=== PATIENT | male | born 1995 | race Two or more races ===

== ENCOUNTER 2020-02-13 22:58 | Emergency (ER) | payer MEDICARE, MEDICAID, SELFPAY ==
--- NOTE | 2020-02-13 23:01 | ED.PSYCH ---
HPI - Psych General Chief Complaint: General Medical Stated Complaint: AMS,HX TBI Time Seen by Provider: 02/13/20 22:59 Source: patient Mode of arrival: ambulatory Limitations: no limitations History of Present Illness HPI Narrative: Patient states he had a severe brain injury and he is not making the best decisions and needs help. Onset (ago): year(s) Duration: constant Associated symptoms: denies other symptoms Related Data Home Medications Medication Instructions Recorded Confirmed No Known Home Meds 02/13/20 02/13/20 Allergies Allergy/AdvReac Type Severity Reaction Status Date / Time No Known Allergies Allergy Verified 02/13/20 23:04 Review of Systems Constitutional: Constitutional: Reports no additional constitutional complaints Eyes: Eyes: Reports no additional eye complaints ENT: Denies dizziness Cardiovascular: Cardiovascular: Reports no additional cardiovascular complaints Respiratory: Respiratory: Reports as per HPI Gastrointestinal: Gastrointestinal: Reports no additional gastrointestinal complaints Musculoskeletal: Musculoskeletal: Reports no additional musculoskeletal complaints Integumentary/Breasts: Skin/Breast: Denies rash Neurologic: Reports system reviewed and no additional complaints, except as documented, Denies dizziness and Denies Sensory deficit (Neuro) Psychiatric: Psychiatric: Denies anxiety [facility] Past Medical History Medical History (Updated 02/13/20 @ 23:13 by Blaine Tiwari RN) TBI (traumatic brain injury) Social History Social History Alcohol intake: never Smoking Status: Never smoker Use of substances other than those prescribed or required for medical reasons: No Advance Directives: No Advance Directives Information Provided: No Physical Exam Vital Signs: Vital Signs: Last Vital Signs Temp 98.4 F 02/13/20 23:15 Pulse 53 02/13/20 23:15 Resp 18 02/13/20 23:15 BP 112/70 02/13/20 23:15 Pulse Ox 97 02/13/20 23:15 Body Mass Index 30.4 Const: General: healthy appearing Nutritional Appearance: average body habitus Orientation/consciousness: oriented to person and patient oriented x3 Limitations: no limitations HENMT: Head: Yes normal to inspection Ears: external ears normal General nose exam: Normal external nose present Mouth: Normal oral and palatal mucosa present and oropharynx normal Throat: Yes posterior oropharynx normal Eyes: General: appearance normal, both eyes and all related structures Neck: Other: supple Neck: Yes normal visual inspection Chest: Chest palpation & inspection: normal inspection of the chest Resp: Auscultation: clear to auscultation bilaterally Cardio: Jugular venous distension: no JVD Rate: regular rate Rhythm: regular rhythm Heart sounds: S1 normal heart sound present and S2 normal heart sound present GI: Inspection: Yes normal to inspection Palpation (GI): Soft to palpation, nontender and No hepatosplenomegaly present Auscultation: normal bowel sounds : General: Yes no CVA tenderness Back/Spine/Pelvis: Back: no CVA tenderness Skin: General skin exam: no rashes or lesions noted Neuro: General: oriented to person and patient oriented x3 Cranial nerves: Yes CN's II-XII intact bilaterally Motor exam (neuro): 5/5 motor strength present throughout Sensory Exam: No Sensory deficit (Neuro) Extrem: General: Yes normal to inspection Psych: Appearance: grossly normal Course Course Course Narrative: Patient states he does not want his sister picking him up. He will call an Uber and get a ride to his friends MDM - Psych MDM Narrative Medical decision making narrative: Patient can leave the ED he is not a denger to self or others Restraints Face to Face Assessment: Face to Face Assessment: Current Situation: After assessment of the patient, a review of the pertinent medical record and a discussion with nursing staff, I feel the patient requires a restrain intervention. Reaction To: [] Medical Condition: [] Behavioral State: [] Continued Need: [] Lab Data Result diagrams: 02/13/20 23:21 02/13/20 23:21 Labs: Lab Results 02/13/20 02/13/20 02/13/20 Range/Units 23:21 23:21 23:51 WBC 9.1 (4.8-10.8) X10*3/uL RBC 5.42 (4.60-5.80) X10*6/uL Hgb 16.0 (14.0-18.0) g/dl Hct 47.0 (42-52) % MCV 86.7 (80-98) fL MCH 29.5 (27.0-33.0) pg MCHC 34.0 (31.0-36.0) g/dl RDW 12.6 (11.0-16.0) % Plt Count 206 (160-400) X10*3/uL MPV 11.2 (9.4-12.4) fL Immature Gran % (Auto) 0.2 (0.0-0.4) % Neut % (Auto) 75.1 H (45-73) % Lymph % (Auto) 19.7 L (20-40) % [place] % (Auto) 4.2 (2-11) % Eos % (Auto) 0.6 (0-4) % Baso % (Auto) 0.2 (0-2) % Lymph # (Auto) 1.8 (1.2-4.9) X10*3/uL [place] # (Auto) 0.4 (0.1-1.2) X10*3/uL Eos # (Auto) 0.1 (0.0-0.4) X10*3/uL Baso # (Auto) 0.0 (0.0-0.2) X10*3/uL Abs Immat Gran (auto) 0.02 (0.00-0.03) X10*3/uL Absolute Neuts (auto) 6.8 (2.0-8.3) X10*3/uL Absolute Nucleated RBC 0.000 (0.0-0.012) X10*3/uL Nucleated RBC % (auto) 0.0 (0.0-0.2) /100WBC Sodium 139 (135-145) mmol/L Potassium 3.9 (3.3-5.1) mmol/l Chloride 106 (96-108) mmol/L Carbon Dioxide 24 (22-29) mmol/L Anion Gap 13 (12-20) BUN 8 L (9-16) mg/dL Creatinine 0.83 (0.5-1.4) mg/dL Estim Creat Clear Calc 156.9 Estimated GFR > 60 Random Glucose 80 (60-115) mg/dL Calcium 8.6 (8.4-10.2) mg/dL Urine Color YELLOW Urine Appearance CLEAR Urine pH 7.0 (5.0-8.0) Ur Specific [place] 1.020 (1.005-1.025) Urine Protein NEG (NEG-TRACE) MG/DL Urine Glucose (UA) NEG (NEG) MG/DL Urine Ketones NEG (NEG) MG/DL Urine Blood NEG (NEG) Urine Nitrite NEG (NEG) Ur Leukocyte Esterase NEG (NEG) Discharge Plan Discharge Clinical Impression: Homeless Patient Disposition: Home, Self-Care Additional Instructions: Can follow up with outpatient case management Prescriptions: No Action No Known Home Meds RF: 0
[2020-02-13 23:03] VITALS: BP 121/77; BP 136/90; PULSE 54; PULSE 56; RESP 18; TEMP 36.9; O2SAT 100; O2SAT 98; BMI 30.4
[2020-02-13 23:15] VITALS: BP 112/70; PULSE 53; RESP 18; TEMP 36.9; O2SAT 97
[2020-02-13 23:27] LABS: MANUAL DIFF FLAG NO
[2020-02-13 23:28] LABS: Basophils Percent Auto 0.2 % (0-2); Eosinophils Absolute Auto 0.1 X10*3/uL (0.0-0.4); Eosinophils Percent Auto 0.6 % (0-4); Imm Gran Abs Auto 0.02 X10*3/uL (0.00-0.03); Imm Gran Pct Auto 0.2 % (0.0-0.4); Lymphocytes Absolute Auto 1.8 X10*3/uL (1.2-4.9); Lymphocytes Percent Auto 19.7 % (20-40); Mean Corpuscular Hemoglobin 29.5 pg (27.0-33.0); Mean Corpuscular Volume 86.7 fL (80-98); Mean Platelet Volume 11.2 fL (9.4-12.4); Monocytes Absolute Auto 0.4 X10*3/uL (0.1-1.2); Monocytes Percent Auto 4.2 % (2-11); Neutrophils Absolute Auto 6.8 X10*3/uL (2.0-8.3); Neutrophils Percent Auto 75.1 % (45-73); Platelet Count 206 X10*3/uL (160-400); Red Blood Count 5.42 X10*6/uL (4.60-5.80); Red Cell Distribution Width 12.6 % (11.0-16.0); White Blood Count 9.1 X10*3/uL (4.8-10.8)
[2020-02-13 23:56] LABS: Anion Gap 13 (12-20); Blood Urea Nitrogen 8 mg/dL (9-16); Calcium 8.6 mg/dL (8.4-10.2); Carbon Dioxide 24 mmol/L (22-29); Chloride 106 mmol/L (96-108); Creatinine Clr Calc Pharmacy 156.9; Estimated Glomerular Filt Rate > 60; Glucose Random 80 mg/dL (60-115); Potassium 3.9 mmol/l (3.3-5.1); Sodium 139 mmol/L (135-145)
[2020-02-14] LABS: Glucose Urine UA NEG (NEG); Leukocyte Esterase Urine NEG (NEG); Nitrite Urine NEG (NEG); Urine Blood NEG (NEG); Urine Ketones NEG (NEG); Urine Protein NEG (NEG-TRACE)
[2020-02-14 00:05] LABS: Appearance Urine CLEAR; Color Urine YELLOW
--- NOTE | 2020-02-14 00:11 | MHC.CARE ---
CARE Team speaks with Dr. Guillermo, after receiving a consult, which indicates that pt has no safe place to go, and has a TBI. Per discussion with Dr. Guillermo, pt not currently in need of psychiatric treatment and instead is in need of a halfway program which can address his TBI. Plan will be for patient to board overnight in the ED and Dr. Guillermo will place a case management consult.
== END 2020-02-14 01:46 | disposition home or self-care (01) ==
LOC: HO.ED 02-14 01:27
PROVIDERS: Emergency Provider Emergency Medicine
DX: R41.82 Altered mental status, unspecified (principal); Z87.820 Personal history of traumatic brain injury
CPT/HCPCS: 36415; 80048; 81003; 85025; 99284

== ENCOUNTER 2025-01-29 16:07 | Emergency (ER) | payer MEDICARE, MEDICAID, SELFPAY ==
--- OUTSIDE RECORDS SUMMARY | 2025-01-23 17:44 | XMS_ITS | Encounter Summary ---
Author Organization [facility] Address [address] [place] [address] Care Team Providers Care Supervisor Rolling Room Name Role Phone Mg Louis MD Primary Care Provider [phone] Reason for Visit * Reason Comments Weakness - Generalized Pt feeling off fo r one hour; Mult visits this week Encounter Details Date Type Department Care Team (Late st Contact Info) Description 01/23/2025 5:44 PM EDT - 01/23/2025 9:32 PM EDT Emergency [facility] Emergency [address] [place] [address] Angelita Peck MD [address] [place] [address] Acute right ankle pain (Primary Dx) Discharge Disposition: Home or Self Care Social History Tobacco Use Types Packs/Day Years Used Date Smoking Tobacco: Never Smokeless Tobacco: Never Alcohol Use Standard Drinks/Week Comments No 0 (1 standard drink = 0.6 oz pur e alcohol) Sex and Gender Information Value Date Recorded Sex Assigned at Not on file Legal Sex Male 11:01 AM EST Gender Identity Not on file Sexual Orientation Not on file documented as of this encounter Last Filed Vital Signs Vital Sign Reading Time Taken Comments Blood Pressure 127/85 01/23/2025 6:05 PM EDT Pulse 70 01/23/2025 6:05 PM EDT Temperature 36.7 C (98.1 F) 01/23/2025 6:05 PM EDT Respiratory Rate 18 01/23/2025 6:05 PM EDT Oxygen Saturation 99% 01/23/2025 6:05 PM EDT Inhaled Oxygen Concentration - - Weight 117 kg (259 lb) 01/23/2025 6:05 PM EDT Height 177.8 cm (5' 10 ) 01/23/2025 6:05 PM EDT Body Mass Index 37.16 01/23/2025 6:05 PM EDT documented in this encounter Functional Status * Calculated C-SSRS Risk Score (Lifetime/Recent) Answer Date of Assessment Author No Risk Indicated 01/23/2025 6:04 PM EDT Santiago Moody RN * Superior Suicide Severity Rating Scale (Screener/Recent Self-Report) Question Answer Date of Assessment Author 1. Wish to be (Past 1 Month) No 025 6:04 PM EDT Ibeth Moody RN 2. Non-Specific Active Suici sidney Thoughts (Past 1 Month) No 01/23/2025 6:04 PM EDT Margarita Moody RN 6. Suicidal Behavior (Lifetime) No 5 6:04 PM EDT Ibeth Moody RN documented as of this encounter Medications at Time of Discharge diclofenac (VOLTAREN) 1 % topical gel Apply 4 g topically 4 (four) times a day for 7 days. 100 g 01/22/2025 divalproex (DEPAKOTE ER) 500 mg 24 hr tablet Take 2 tablets (1,000 mg total) by mouth 2 (two) times a day. 03/03/2024 OLANZapine (ZyPREXA) 5 mg tablet Take 0.5 tablets (2.5 mg total) by mouth at bedtime. ibuprofen (ADVIL,MOTRIN) 600 mg tablet Take 1 tablet (600 mg total) by mouth 3 (three) times a day for 5 days. 15 each 01/22/2025 5 documented as of this encounter Discharge Disposition Disposition Code Departure Means Destination Home or Self Care documented in this encounter Progress Notes * Angelita Peck MD - 01/23/2025 6:04 PM EDT Asked to evaluate patient for stroke given feeling off and history of TBI. Patient denies all neuro symptoms, is here for fall and pain in right ankle, head feels off , no dizziness, headache. Hisneurological exam is normal. No stroke alert activated. * Shira Godinez RN - 01/23/2025 5:57 PM EDT Pt called EMS for feeling off for one hours. Hx of TBI. Negative stroke scale for EMS. Pt denies dizziness, numbness, si/hi, nausea/vomiting. * Angelita Peck MD - 01/23/2025 5:44 PM EDT Patient no answer x 3. I had seen him in triage for neuro exam, he was complaining of non-specific not feeling well , ongoing right ankle pain, no specific symptoms, appeared chronically but not acutely ill, had normal vitals, breathing normally. Patient left prior to additional evaluation. Angelita Peck MD 01/23/254 documented in this encounter Plan of Treatment Not on file documented as of this encounter Visit Diagnoses Diagnosis Acute right ankle pain- Primary documented in this encounter Care Teams Supervisor Rolling Room Relationship Specialty Start Date End Date Mg Louis MD [address] [place] [address] PCP - General Internal Medicine 01/21/25 documented as of this encounter
--- OUTSIDE RECORDS SUMMARY | 2025-01-24 08:43 | XMS_ITS | Continuity of Care Document ---
Author Organization [facility] ter Address [address] [place] [address]- Care Team Providers Care Linux System Administrator Name Role Phone Missy ESTRADA, Mg De Souza Primary Care Physician [place] [facility] [place]/23/[place] - 01/24/[address] [address]- Discharge Disposition: A-D/C Walkout Attending Physician: Trevor Salinas MD Admitting Physician: Trevor Salinas MD Referring Physician: Not on Staff, Referring MD Encounter Type: Disch ES Allergies, Adverse Reactions, Alerts No Known Allergies Immunizations Given and Recorded Vaccine Date Status Refusal Reason influenza virus vaccine, inactivated 04/16/24 Give n influenza virus vaccine, inactivated 03/11/22 Santiago rded influenza virus vaccine, inactivated 06/18/21 Santiago rded influenza virus vaccine, inactivated 12/26/19 Santiago rded influenza virus vaccine, inactivated 05/07/19 Santiago rded influenza virus vaccine, inactivated 03/15/18 Santiago rded influenza virus vaccine, inactivated 01/21/16 Santiago rded SARS-CoV-2(COVID-19)mRNA-LNP vac([id number]) 02/12/24 Given SARS-CoV-2 (COVID-19) mRNA-1273 vaccine 06/10/20 R ecorded SARS-CoV-2 (COVID-19) mRNA-1273 vaccine 05/13/20 R ecorded hepatitis B adult vaccine 07/12/18 Recorded hepatitis B adult vaccine 03/15/18 Recorded Medications divalproex sodium 500 mg oral enteric coated tablet = 500 mg, By Mouth, 2 times a day, # 28 tablet, 1 Refills, Maintenance, 08/14/22 11:03:00 AM EDT, Tablet, [facility], Partial fill upon patient request if the prescription is for a schedule II opioid drug., 178, cm, 08/07/22 15:22:00 EDT, Height, 117, kg, 08/07/22 15:22:00 EDT, Dry Weight Start Date: 08/14/22 Stop Date: 09/11/22 Status: Ordered Medication Dispense Status: Completed Quantity: 28.0 Unit: tablet Total Allowed Fills: 2 Fills Dispensed: 0 olanzapine 10 mg oral tablet 10 mg, 1, tablet, By Mouth, Daily at bedtime, # 30 tablet, Refills 1, Tot. Refills 1, Maintenance, 03/09/20 11:59:00 AM EST, Route to Pharmacy Electronically, [facility]/pharmacy #[id number], Partial fill upon patient request if the prescription is for a schedule II opioid drug., 178, cm, 03/09/20 8:41:00 EST, Height, 99.5, kg, 02/28/20 19:45:00 EST, Dry Weight Start Date: 03/09/20 Status: Ordered Medication Dispense Status: Completed Quantity: 30.0 Unit: tablet Total Allowed Fills: 2 Fills Dispensed: 0 traZODone 50 mg oral tablet 50 mg, 1, tablet, By Mouth, Daily at bedtime, # 90 tablet, Refills 1, Tot. Refills 1, Maintenance, 06/24/24 8:12:00 AM EDT, Route to Pharmacy Electronically, [facility]/pharmacy #[id number], Partial fill upon patient request if the prescription is for a schedule II opioid drug., 178, cm, 05/27/24 9:22:00 EST, Height, 124, kg, 04/30/24 17:55:00 EST, Dry Weight Start Date: 06/24/24 Status: Ordered Medication Dispense Status: Completed Quantity: 90.0 Unit: tablet Total Allowed Fills: 2 Fills Dispensed: 0 Indications: Insomnia, unspecified; Mental Status Mental Status Assessment Assessment Assessment Component Result Effecti ve Date [place] coma score total 15 Problem List Condition Confirmation Course Effective Dates Status Health St atus Informant Compulsive behaviors Confirmed Active COVID-19 1 Confirmed 06/29/21 Active 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 Confirmed Active 1Problem added by Discern Expert Vital Signs Most recent to oldest [Reference Range]: 1 2 Height 178 cm (01/23/25 9:47 PM) 178 cm (01/23/25 9:07 PM) Weight 117.7 kg (01/23/25 9:47 PM) 117.7 kg (01/23/25 9:07 PM) Oxygen Saturation [94-100 %] 100 % (01/23/25 9:07 PM) Pulse Rate [55-90 bpm] 85 bpm (01/23/25 9:07 PM) Body Mass Index [18.5-24.99 kg/m2] 37.15 kg/m2 *H* (01/23/25 9:07 PM) Blood Pressure [90-138/55-84 mm Hg] 140/ 84mm Hg *H* (01/23/25 9:07 PM) Respiratory Rate [16-30 br/min] 17 br/mi n (01/23/25 9:07 PM) Temperature [96.8-100.4 DegF] 97.6 DegF (01/23/25 9:07 PM) Mode of Delivery (Oxygen) Room air (01/23/25 9:07 PM) Blood pressure sites Arm, left (01/23/25 9:07 PM) Temperature Route Oral (01/23/25 9:07 PM) Dry Weight 117.7 kg (01/23/25 9:47 PM) 117.7 kg (01/23/25 9:07 PM) Weight Obtained Via Patient/family state d (01/23/25 9:07 PM) Dry Weight Obtained Via Patient/family s tated (01/23/25 9:07 PM) Social History Social History Type Response Smoking Status Never (less than 100 in lifetime); Interested in cessation: No; Patient wants NRT during admission No entered on: 09/12/22 Sex Male Sex Representation Male (finding) Status N/A Patient Care team information Care Team Personnel Name: Mg Louis MD Position: [facility] Physician - Primary Care Member Role: PCP Address: [address] [place], [place] [address] Telecom: Name: Sara Kellogg [place] Position: [facility] Federal Aid Coordinator Member Role: Slitter Creaser Slotter Helper Care Team Related Persons Name: TOM SHER Name: ANGELA HOFFMAN Name: ZORAIDA HOFFMAN Name: CHRISTOS DAMON Name: CHRISTOS SANTOS Insurance Providers Guarantor name: SMIHT Health Plan Information #: 1 Payer: MEDICARE B Payer Identifier: NA Member Number: [id number] Group Number: Subscriber Identifier: [id number] Relationship to Subscriber: self Coverage Type: NA Coverage Verification Date: NA Telecom: NA Address: Health Plan Information #: 2 [facility] Payer Identifier: NA Member Number: [id number] Group Number: Subscriber Identifier: [id number] Relationship to Subscriber: self Coverage Type: MEDICAID Coverage Verification Date: NA Telecom: NA Address:
--- OUTSIDE RECORDS SUMMARY | 2025-01-24 10:27 | XMS_ITS | Continuity of Care Document ---
Author Organization [facility] ter Address [address] [place] [address]- Care Team Providers Care Dental Laboratory Manager Name Role Phone Missy ESTRADA, Mg De Souza Primary Care Physician Encounter [facility] Date(s): 01/24/25 - 01/24/[address] [address]- Discharge Disposition: A-D/C Home Attending Physician: Lisette Berman MD Admitting Physician: Lisette Berman MD Referring Physician: Not on Staff, Referring [...] virus vaccine, inactivated 01/21/16 Santiago rded SARS-CoV-2(COVID-19)mRNA-LNP vac([id number]) 02/12/24 Given SARS-CoV-2 (COVID-19) mRNA-1273 vaccine 06/10/20 R ecorded SARS-CoV-2 (COVID-19) mRNA-1273 vaccine 05/13/20 R ecorded hepatitis B adult vaccine 07/12/18 Recorded hepatitis B adult vaccine 03/15/18 Recorded Medications divalproex sodium 500 mg oral enteric coated tablet = 500 mg, By Mouth, 2 times a day, # 28 tablet, 1 Refills, Maintenance, 08/14/22 11:03:00 AM EDT, Tablet, [facility], Partial fill upon patient request [...] 11:59:00 AM EST, Route to Pharmacy Electronically, [facility]/pharmacy #[id number], Partial fill upon patient request [...] 8:12:00 AM EDT, Route to Pharmacy Electronically, [facility]/pharmacy #[id number], Partial fill upon patient request [...] Assessment Assessment Component Result Effecti ve Date [place] coma score total 15 Mental Status Assessment Assessment Assessment Component Result Effecti ve Date [place] coma score total 15 Problem List Condition Confirmation Course Effective Dates Status Health St atus Informant Compulsive behaviors Confirmed Active COVID-19 1 Confirmed 06/29/21 Active 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 Confirmed Active 1Problem added by Discern Expert Vital Signs Most recent to oldest [Reference Range]: 1 Oxygen Saturation [94-100 %] 100 % (01/24/25 8:34 AM) Pulse Rate [55-90 bpm] 88 bpm (01/24/25 8:34 AM) Blood Pressure [90-138/55-84 mm Hg] 140/ 86mm Hg *H* (01/24/25 8:34 AM) Respiratory Rate [16-30 br/min] 16 br/mi n (01/24/25 8:34 AM) Temperature [96.8-100.4 DegF] 97.9 DegF (01/24/25 8:34 AM) Mode of Delivery (Oxygen) Room air (01/24/25 8:34 AM) Temperature Route Oral (01/24/25 8:34 AM) Social History Social History Type Response Smoking Status Never (less than 100 in lifetime); Interested in cessation: No; Patient wants NRT during admission No entered on: 09/12/22 Sex Male Sex Representation Male (finding) Status N/A Note * Cullen ESTRADA, Lisette J: PERFORM, SIGN, VERIFY Event Display: Patient Education Handout Authored Date: [id number] Patient Care team information Care Team Personnel Name: Mg Louis MD Position: [facility] Physician - Primary Care Member Role: PCP Address: [address] [place] [address]- Telecom: Name: Sara Kellogg [place] Position: [facility] KALIN Laryngologist Member Role: Social Work Associate Care Team Related Persons Name: TOM SHER Name: ANGELA HOFFMAN Name: ZORAIDA HOFFMAN Name: CHRISTOS DAMON Name: CHRISTOS SANTOS Insurance Providers Guarantor name: SMITH Health Plan Information #: 1 Payer: MEDICARE B Payer Identifier: SMITH Member Number: [id number] Group Number: SMITH Subscriber Identifier: [id number] Relationship to Subscriber: self Coverage Type: NA Coverage Verification Date: NA Telecom: NA Address: NA Health Plan Information #: 2 Payer: [facility] CUSTOMER SERVICE Payer Identifier: SMITH Member Number: [id number] Group Number: SMITH Subscriber Identifier: [id number] Relationship to Subscriber: self Coverage Type: MEDICAID Coverage Verification Date: NA Telecom: NA Address: NA
--- OUTSIDE RECORDS SUMMARY | 2025-01-24 23:59 | XMS_ITS | Continuity of Care Document ---
Author Organization [facility] Address [address] [place] [address]- Care Team Providers Care Math Professor Name Role Phone Mg Louis MD Primary Care Physician Encounter [facility] Date(s): 12/25/24 - 01/24/[address] [address]- Encounter Type: Triage Allergies, Adverse Reactions, Alerts No Known Allergies [...] virus vaccine, inactivated 01/21/16 Santiago rded SARS-CoV-2(COVID-19)mRNA-LNP vac([id number]) 02/12/24 Given SARS-CoV-2 (COVID-19) mRNA-1273 vaccine 06/10/20 R ecorded SARS-CoV-2 (COVID-19) mRNA-1273 vaccine 05/13/20 R ecorded hepatitis B adult vaccine 07/12/18 Recorded hepatitis B adult vaccine 03/15/18 Recorded Medications divalproex sodium 500 mg oral enteric coated tablet = 500 mg, By Mouth, 2 times a day, # 28 tablet, 1 Refills, Maintenance, 08/14/22 11:03:00 AM EDT, Tablet, [facility], Partial fill upon patient request [...] 11:59:00 AM EST, Route to Pharmacy Electronically, [facility]/pharmacy #[id number], Partial fill upon patient request if [...] 8:12:00 AM EDT, Route to Pharmacy Electronically, [facility]/pharmacy #[id number], Partial fill upon patient request if the prescription is for a schedule II opioid drug., 178, cm, 05/27/24 9:22:00 EST, Height, 124, kg, 04/30/24 17:55:00 EST, Dry Weight Start Date: 06/24/24 Status: Ordered Medication Dispense Status: Completed Quantity: 90.0 Unit: tablet Total Allowed Fills: 2 Fills Dispensed: 0 Indications: Insomnia, unspecified; Problem List Condition Confirmation Course Effective Dates Status Health St atus Informant Compulsive behaviors Confirmed Active COVID-19 1 Confirmed 06/29/21 Active 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 Confirmed Active 1Problem added by Discern Expert Social History Social History Type Response Smoking Status Never (less than 100 in lifetime); Interested in cessation: No; Patient wants NRT during admission No entered on: 09/12/22 Sex Male Sex Representation Male (finding) Patient Care team information Care Team Personnel Name: Missy ESTRADA, Mg De Souza Position: [facility] Physician - Primary Care Member Role: PCP Address: [address] [place] [id number] Telecom: Name: Sara Kellogg [place] Position: [facility] KALIN Riveter Portable Machine Member Role: Kettle Operator Head Care Team Related Persons Name: TOM SHER Name: ANGELA HOFFMAN Name: ZORAIDA HOFFMAN Name: CHRISTOS DAMON Name: CHRISTOS SANTOS Insurance Providers Guarantor name: SMITH Health Plan Information #: 1 Payer: MEDICARE B Payer Identifier: SMITH Member Number: [id number] Group Number: Subscriber Identifier: SMITH Relationship to Subscriber: self Coverage Type: NA Coverage Verification Date: Telecom: Address: Health Plan Information #: 2 Payer: [employer] Payer Identifier: SMITH Member Number: [id number] Group Number: Subscriber Identifier: Relationship to Subscriber: self Coverage Type: MEDICAID Coverage Verification Date: Telecom: Address:
--- OUTSIDE RECORDS SUMMARY | 2025-01-25 18:42 | XMS_ITS | Continuity of Care Document ---
Author Organization [facility] ter Address [address] [place] [address]- Care Team Providers Care Bleach Packer Name Role Phone Mg Louis MD Primary Care Physician Encounter [facility] Date(s): 01/25/25 - 01/25/[address] [address]- Encounter Diagnosis Wellness examination(Final) - 01/25/25 Discharge Disposition: A-D/C Home Attending Physician: Sylwia Dowell DO Admitting Physician: Sylwia Dowell DO Referring Physician: Not on Staff, Referring MD [...] virus vaccine, inactivated 01/21/16 Santiago rded SARS-CoV-2(COVID-19)mRNA-LNP vac([id number]) 02/12/24 Given SARS-CoV-2 (COVID-19) mRNA-1273 vaccine 06/10/20 R ecorded SARS-CoV-2 (COVID-19) mRNA-1273 vaccine 05/13/20 R ecorded hepatitis B adult vaccine 07/12/18 Recorded hepatitis B adult vaccine 03/15/18 Recorded Medications divalproex sodium 500 mg oral enteric coated tablet = 500 mg, By Mouth, 2 times a day, # 28 tablet, 1 Refills, Maintenance, 08/14/22 11:03:00 AM EDT, Tablet, [facility], Partial fill upon patient request if [...] 11:59:00 AM EST, Route to Pharmacy Electronically, [facility]/pharmacy #[id number], Partial fill upon patient request if [...] 8:12:00 AM EDT, Route to Pharmacy Electronically, [facility]/pharmacy #[id number], Partial fill upon patient request if [...] ve Date Nikko coma score total 15 Mental Status Assessment Assessment Assessment Component Result Effecti ve Date Nikko coma score total 15 Dry body weight Measured 117 Body height 178 01/25/25 Scale weight (physic al object) Patient/family stated 01/25/25 Body weight 117 01/25/25 Problem List Condition Confirmation Course Effective Dates Status Health St atus Informant Compulsive behaviors Confirmed Active COVID-19 1 Confirmed 06/29/21 Active 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 Confirmed Active 1Problem added by Discern Expert Vital Signs Most recent to oldest [Reference Range]: 1 2 Height 178 cm (01/25/25 4:52 PM) 178 cm (01/25/25 4:27 PM) Weight 117 kg (01/25/25 4:52 PM) 117 kg (01/25/25 4:27 PM) Oxygen Saturation [94-100 %] 99 % (01/25/25 4:27 PM) Pulse Rate [55-90 bpm] 80 bpm (01/25/25 4:27 PM) Body Mass Index [18.5-24.99 kg/m2] 36.93 kg/m2 *H* (01/25/25 4:27 PM) Blood Pressure [90-138/55-84 mm Hg] 150/ 95mm Hg *H* (01/25/25:27 PM) Respiratory Rate [16-30 br/min] 18 br/mi n (01/25/25 4:27 PM) Temperature [96.8-100.4 DegF] 98.4 DegF (01/25/25 4:27 PM) Mode of Delivery (Oxygen) Room air (01/25/25 4:27 PM) Blood pressure sites Arm, right (01/25/25 4:27 PM) Temperature Route Oral (01/25/25 4:27 PM) Dry Weight 117 kg (01/25/25 4:52 PM) 117 kg (01/25/25 4:27 PM) Weight Obtained Via Patient/family state d (01/25/25 4:52 PM) Patient/family stated (01/25/25 4:27 PM) Dry Weight Obtained Via Patient/family s tated (01/25/25 4:27 PM) Social History Social History Type Response Smoking Status Never (less than 100 in lifetime); Interested in cessation: No; Patient wants NRT during admission No entered on: 09/12/22 Sex Male Sex Representation Male (finding) Status N/A Note * Sylwia Dowell DO: PERFORM Event Display: Patient Education Leaflets Authored Date: [id number] Depression ?? [id number] Depression Depression is a common mental health problem. It's not just a state of being unhappy or sad. It's aserious illness. It is a type of mood disorder. It affects the way a person feels and thinks. And it affects how they handle daily activities. These include working, sleeping, and eating. The cause seems to be linked to a change in chemicals that send signals in the brain. These things increase a person???s risk for depression: ??? A family history of depression, alcoholism, or suicide ??? Chronic mental or physical illness ??? Chronic pain ??? Migraine headaches ??? High emotional stress Depression may be easier to see in others. You may have a hard time seeing it in yourself. It can show in many physical and emotional ways. These include: ??? Loss of appetite. ??? Overeating. ??? Not being able to sleep. ??? Sleeping too much. ??? A lotof tiredness not linked to physical activity. ??? Restlessness or irritability. ??? Slowness of movement or speech. ??? Feeling sad or withdrawn. ??? Loss of interest in things you once enjoyed. ??? T rouble??concentrating, remembering,??or making decisions. ??? Thoughts of harming or killing yourself, or thoughts that life is not worth living. ??? Low self-esteem. The treatment for depression may include medicine or psychotherapy, or both. The goal of treatment is to reduce or get rid of your symptoms and restore the quality of your life. Antidepressant medicines can ease symptoms. They can also make it easier for you to do daily tasks.Some people start feeling better within 1 to 2 weeks after using these medicines. But it can take 6to 12 weeks to get their full effect. Psychotherapy, or talk therapy, can offer emotional support. It can also help you understand and manage things that may be causing the depression. It can occur between you and a counselor. Or it can happen in a group setting. Some people prefer virtual counseling, or telehealth, to in-person meetings. In addition to medicine and psychotherapy, physical activity and exercise can ease depression. Talkwith your health care provider about where to start. Home care ??? Ongoing care and support help people manage this illness. Find a health care providerand a counselor who meet your needs. Get help when you feel like you may be getting ill. ??? Be kind to yourself. Make it a point to do things that you enjoy. This may be gardening, walking in nature, or going to a movie. Reward yourself for small successes. ??? Take care of your body. Eat a balanced diet. Eat foods low in saturated fat. Eat lots of fruits and vegetables. Exercise at least 3 times a week for 30 minutes. Even mild to moderate exercise like brisk walking can help you feel better.??? Take medicine as prescribed. Don't stop your medicine or change the dose unless you talk with your health care provider. ??? Once you start taking medicine, expect your symptoms to get better slowly. Depression will lift over time. It does not get better right away. Ask your health care provider how long it will take for your medicine to start working. ??? Don't share your medicine. Don???t use someone else's medicine. ??? Tell your health care providers about all the medicines you take. This includes prescription and [id number] medicines. It also includes vitamins and herbal supplements. Some supplements can interact with medicines. They can cause dangerous side effects. Talk to your pharmacist if you have questions about your medicines. ??? Don't make major changes until you feel better. This includes things like quitting your job, moving, and starting or ending a relationship. ??? Don't drink alcohol. It can make depression worse. ??? Talk with your family and??trusted friends??about your feelings and thoughts.??Ask them to help you notice behavior changes early. You can then get help. And your medicine can be changed, if needed. ??? Talk with your health care provider if you are not getting better. They may change your medicine or have you try another treatment. ?? Follow-up care Follow up with your health care provider as advised. ?? Crisis care Call 988 if you have thoughts of harming yourself or others. When you call or text 988, you will beconnected to trained crisis counselors. An online chat choice is also available. Anchor™ is free and available 24/10. 988 counselors will work with 911 to help you get the care you need. Call 911 if you: ??? Have trouble breathing. ??? Are??very confused. ??? Feel very drowsy or have??trouble waking up. ??? Faint. ??? Have new chest pain that becomes more severe, lasts longer, or spreads into your shoulder, arm, neck, jaw, or back. ?? When to get medical care Contact your health care provider right away if: ??? Your symptoms get worse. ??? You have extreme depression, fear, anxiety, or anger toward yourself or others. ??? You feel out of control. ??? You feel that you may try to harm yourself or others. ??? You hear voices other people don't hear. ??? You see things other people don't see. ??? You don't sleep or eat for 3 days in a row. ??? Your friends or family express concern over your behavior and ask you to get help. ?? Last Reviewed Date: 2024 00:00:00 ?? [id number] [employer]. All rights reserved. This information is not intended as a substitute for professional medical care. Always follow your healthcare professional's instructions. ?? Patient Care team information Care Team Personnel Name: Mg Louis MD Position: [facility] Physician - Primary Care Member Role: PCP Address: [address] [place] [address]- Telecom: Name: Sara Kellogg MA Position: [facility] KALIN Special Skills Officer Member Role: Resource Room Special Education Teacher Care Team Related Persons Name: TOM SHER Name: ANGELA HOFFMAN Name: ZORAIDA HOFFMAN Name: CHRISTOS DAMON Name: CHRISTOS SANTOS Insurance Providers Guarantor name: SMITH Health Plan Information #: 1 Payer: MEDICARE B Payer Identifier: SMITH Member Number: [id number] Group Number: SMITH Subscriber Identifier: [id number] Relationship to Subscriber: self Coverage Type: NA Coverage Verification Date: NA Telecom: NA Address: Health Plan Information #: 2 Payer: [facility] C[employer]ER SERVICE Payer Identifier: SMITH Member Number: [id number] Group Number: SMITH Subscriber Identifier: [id number] Relationship to Subscriber: self Coverage Type: MEDICAID Coverage Verification Date: NA Telecom: NA Address:
--- OUTSIDE RECORDS SUMMARY | 2025-01-26 23:59 | XMS_ITS | Continuity of Care Document ---
Author Organization [facility] Address [address] [place] [address]- Care Team Providers Care Glazier Artist Name Role Phone Mg Louis MD Primary Care Physician [phone] Encounter [facility] Date(s): 12/27/24 - 01/26/[address] [address]- Encounter Type: Triage Allergies, Adverse Reactions, Alerts [...] virus vaccine, inactivated 01/21/16 Santiago rded SARS-CoV-2(COVID-19)mRNA-LNP vac([id number]) 02/12/24 Given SARS-CoV-2 (COVID-19) mRNA-1273 vaccine 06/10/20 R ecorded SARS-CoV-2 (COVID-19) mRNA-1273 vaccine 05/13/20 R ecorded hepatitis B adult vaccine 07/12/18 Recorded hepatitis B adult vaccine 03/15/18 Recorded Medications divalproex sodium 500 mg oral enteric coated tablet = 500 mg, By Mouth, 2 times a day, # 28 tablet, 1 Refills, Maintenance, 08/14/22 11:03:00 AM EDT, Tablet, [facility] 3, Partial fill upon patient [...] 11:59:00 AM EST, Route to Pharmacy Electronically, [facility]/pharmacy #[id number], Partial fill upon patient request if [...] 8:12:00 AM EDT, Route to Pharmacy Electronically, [facility]/pharmacy #[id number], Partial fill upon patient request if [...] Name: Missy ESTRADA, Mg De Souza Position: [facility] Physician - Primary Care Member Role: PCP Address: [address] [place], [place] [address] Telecom: Name: Sara Kellogg MA Position: [facility] Produce Assistant Member Role: Ict Help Desk Officer Care Team Related Persons Name: TOM SHER Name: ANGELA HOFFMAN Name: ZORAIDA HOFFMAN Name: CHRISTOS DAMON Name: CHRISTOS SANTOS Insurance Providers Guarantor name: SMITH Health Plan Information #: 1 Payer: MEDICARE B Payer Identifier: SMITH Member Number: [id number] Group Number: Subscriber Identifier: SMITH Relationship to Subscriber: self Coverage Type: NA Coverage Verification Date: Telecom: Address: Health Plan Information #: 2 Payer: [facility] CUSTOMER SERVICE Payer Identifier: SMITH Member Number: [id number] Group Number: SMITH Subscriber Identifier: Relationship to Subscriber: self Coverage Type: MEDICAID Coverage Verification Date: Telecom: Address:
--- OUTSIDE RECORDS SUMMARY | 2025-01-28 22:26 | XMS_ITS | Continuity of Care Document ---
Author Organization [facility] ter Address [address] [place] [address]- Care Team Providers Care Demand Planning Manager Name Role Phone Mg Louis MD Primary Care Physician Encounter [facility] [id number] Date(s): 01/28/25 - 01/28/[address] [address]- Discharge Disposition: A-D/C Home Attending Physician: Ralph Hernández MD Admitting Physician: Ralph Hernández MD Referring Physician: Not on Staff, Referring [...] virus vaccine, inactivated 01/21/16 Santiago rded SARS-CoV-2(COVID-19)mRNA-LNP vac([id number]) 02/12/24 Given SARS-CoV-2 (COVID-19) mRNA-1273 vaccine 06/10/20 R ecorded SARS-CoV-2 (COVID-19) mRNA-1273 vaccine 05/13/20 R ecorded hepatitis B adult vaccine 07/12/18 Recorded hepatitis B adult vaccine 03/15/18 Recorded Medications divalproex sodium 500 mg oral enteric coated tablet = 500 mg, By Mouth, 2 times a day, # 28 tablet, 1 Refills, Maintenance, 08/14/22 11:03:00 AM EDT, Tablet, [facility], Partial fill upon patient request if [...] 11:59:00 AM EST, Route to Pharmacy Electronically, [facility]/pharmacy #[id number], Partial fill upon patient request [...] 8:12:00 AM EDT, Route to Pharmacy Electronically, [facility]/pharmacy #[id number], Partial fill upon patient request [...] [Reference Range]: 1 Oxygen Saturation [94-100 %] 97 % (01/28/25 7:01 PM) Pulse Rate [55-90 bpm] 93 bpm *H* (01/28/25 7:01 PM) Blood Pressure [90-138/55-84 mm Hg] 142/ 90mm Hg *H* (01/28/25 7:01 PM) Respiratory Rate [16-30 br/min] 16 br/mi n (01/28/25 7:01 PM) Temperature [96.8-100.4 DegF] 98.8 DegF (01/28/25 7:01 PM) Mode of Delivery (Oxygen) Room air (01/28/25 7:01 PM) Temperature Route Oral (01/28/25 7:01 PM) Dry Weight 118 kg (01/28/25 7:01 PM) Dry Weight Obtained Via Bed scale (01/28/25 7:01 PM) Social History Social History Type Response Smoking Status Never (less than 100 in lifetime); Interested in cessation: No; Patient wants NRT during admission No entered on: 09/12/22 Sex Male Sex Representation Male (finding) Patient Care team information Care Team Personnel Name: Mg Louis MD Position: [facility] Physician - Primary Care Member Role: PCP Address: [address] [place] [address]- Telecom: Name: Sara Kellogg MA Position: [facility] KALIN Microfilm Technician Member Role: Inspector Wire Products Care Team Related Persons Name: TOM SHER Name: ANGELA HOFFMAN Name: ZORAIDA HOFFMAN Name: HYUN BETH Name: CHRISTOS DAMON Name: CHRISTOS SANTOS Insurance Providers Guarantor name: SMITH Health Plan Information #: 1 Payer: MEDICARE B Payer Identifier: SMITH Member Number: [id number] Group Number: SMITH Subscriber Identifier: [id number] Relationship to Subscriber: self Coverage Type: NA Coverage Verification Date: NA Telecom: NA Address: NA Health Plan Information #: 2 Payer: [facility] CUSTOMER SERVICE Payer Identifier: SMITH Member Number: [id number] Group Number: SMITH Subscriber Identifier: [id number] Relationship to Subscriber: self Coverage Type: MEDICAID Coverage Verification Date: NA Telecom: NA Address: NA
--- NOTE | ~2025-01-29 | XR_ITS ---
CLINICAL HISTORY: Right ankle pain, swelling, R O fracture RIGHT ANKLE X-RAYS COMPARISON: None provided. FINDINGS: A total of 3 views of the right ankle were obtained. Exam is mildly limited due to patient positioning. No definite acute fracture or dislocation within the right ankle. The ankle mortise is maintained. Soft tissue swelling is noted involving the right ankle. IMPRESSION: 1. No evidence of an acute fracture or dislocation. Soft tissue swelling is noted. This document has been electronically signed by: Krzysztof Armijo M.D. on 01/29/2025 22:47:09
--- NOTE | ~2025-01-29 | US_ITS ---
CLINICAL HISTORY: RLE swelling, erythema increased size compared to --- Additional Notes or Special Instructions: Left, R O DVT ULTRASOUND RIGHT LOWER EXTREMITY VENOUS DUPLEX STUDY COMPARISON: None provided. TECHNIQUE: Grayscale, spectral Doppler, and color flow analysis of the right lower extremity venous system was performed. FINDINGS: There is no evidence of a deep venous thrombosis. The common femoral, femoral, popliteal, and visualized deep calf veins are patent. Soft tissue edema/fluid is noted within the right lower leg. IMPRESSION: 1. No evidence of a DVT. 2. Soft tissue edema/fluid is noted in the right lower leg. This document has been electronically signed by: Krzysztof Armijo M.D. on 01/29/2025 23:15:57
[2025-01-29 16:33] VITALS: BP 140/105; PULSE 85; RESP 18; TEMP 36.5; O2SAT 94; BMI 37.2
--- NOTE | 2025-01-29 16:52 | MHC.CARE ---
Fabiana from [facility] contacted the Care Team to report that she assessed pt in the community at the [employer] due to becoming dysregulated after not being able to purchase a cell phone. She stated that pt did not meet criteria for a higher level of care and was found approprite for ACCS however, due to not being able to get in contact with his father, who is the reported legal guardian and being informed that pt's father was already at the ED as pt contacted him and informed him he was being transported to the ED, Fabiana informed care team that pt would be transported to the ED as his father was there waiting. She indicated that she was able to follow up regarding ACCS and denied that he was SI/HI or appropriate for IPLOC. [facility] also noted that he goes by and has been previously diagnosed with a TBI. Pt is also very well known to other local ED's and has presented to [facility] ED multiple times over the last few weeks and reported utilizing the ED as a place to socialize with others and historically is not referred to crisis and typically will discharge back to the care of his family who currently reside in [place], [place].
--- NOTE | 2025-01-29 17:07 | PC.NURSE ---
Received call from patient's brother. Brother states the patient calls ambulances/hospitals multiple times per week. Recent medication adjustment - brother states patient is not doing well with this adjustment. Brother states they are having difficulty caring for him. Brother(Trino) . Father .
--- NOTE | 2025-01-29 18:15 | ED_ITS ---
HPI - General Adult General Chief complaint: Behavioral Concerns Stated complaint: Upset, pt wants to go to respites Time Seen by Provider: 01/29/25 18:15 Source: patient Mode of arrival: ambulatory Limitations: no limitations History of Present Illness ED Provider: Dr. Graham HPI narrative: 30-year-old male history of TBI presented hospital today for evaluation of agitation. Patient was at a TM when he had a crisis episode. Patient was upset. He was upset that he can not upgrade his new phone. Collateral information was obtained from the patient's dad. Stated that patient has been calling hospital multiple times throughout the day. Patient has not been getting much sleep. He is turning up the volume of the TV very very loud. This is abnormal behavior for him. On my evaluation the patient's he does appear to be appropriate. He did admit to doing all those things above. He stated that he does have irregular sleep schedule however he has been sleeping. He feels fine. He does not have any suicide ideation no homicidal ideation no hallucinations. Related Data Home Medications ?Medication ?Instructions ?Recorded ?Confirmed No Known Home Meds 02/13/20 02/13/20 Allergies Allergy/AdvReac Type Severity Reaction Status Date / Time No Known Allergies Allergy Verified 01/29/25 16:36 Review of Systems Review of Systems: Pertinent review of systems as mentioned in HPI. All other system otherwise negative. [facility] Past Medical History [facility] Narrative: TBI Medical History (Updated 01/29/25 @ 20:09 by Bettye Graham DO) TBI (traumatic brain injury) Social History Social History Alcohol intake: never Advance Directives: No Advance Directives Information Provided: No Physical Exam ED Exam Exam: General: Pleasant, no distress, interacting appropriately Head: Normacephalic, atraumatic ENT: oral mucosa moist, neck supple, no tracheal deviation Cardiovascular: regular rate, regular rhythm, no murmurs, rubbing, gallops Respiratory: CTAB, no wheeze, rales, rhonchi Skin: Warm and dry Psychiatric: Appropriate mood and thoughts, denied SI deny homicidal ideation no hallucinations Vital Signs: Vital Signs - 24 hr 01/29/25 16:33 Temperature 97.7 F Pulse Rate 85 Respiratory Rate 18 Blood Pressure 140/105 H Pulse Oximetry 94 Oxygen Delivery Method Room Air BMI result Body Mass Index 37.2 Medical Decision Making Medical Decision Making MDM Narrative: 30-year-old male presented hospital today for evaluation of increased agitation and mood dysregulation. Patient denies any SI denies any HI. Patient appears to have good insight and good judgment on my exam. We will plan to consult care team for further recommendations. I do think patient has capacity make decisions at this time. Patient is amenable to discussing and talking to the care team. Patient is no longer wants to stay to talk to care team at this time requesting to be discharged. I do think patient has good judgment and does have capacity to make decision. Do not see the need to place the patient on section at this time. The patient will be discharged home per his request. Differential Diagnosis Differential Diagnoses: The differential diagnosis associated with the presentation includes Agitation, psychosis, lucas Discharge Plan Discharge Clinical Impression: Anxiety Patient Disposition: Home, Self-Care Prescriptions: No Action No Known Home Meds Print Language: Ukrainian
[2025-01-29 20:15] VITALS: BP 137/84; PULSE 82; RESP 20; TEMP 36.9; O2SAT 98
--- OUTSIDE RECORDS SUMMARY | 2025-01-29 20:15 | XMS_ITS | Encounter Summary ---
Author Organization [facility] Address [address] [place] [address] Care Team Providers Care Manager Hospitality Name Role Phone Mg Louis Primary Care Provider [phone] Encounter Details Date Type Department Care Team (Late st Contact Info) Description 08/15/2022 myChart Message [facility] [address] [place] [phone] Freight Broker: GERALD HORTON Takeiya B., MD [address] [place] [phone] prescription Social History Tobacco Use Types Packs/Day Years Used Date Smoking Tobacco: Never Smokeless Tobacco: Never Alcohol Use Standard Drinks/Week Comments Not Currently 0 (1 standard drink = 0.6 oz pur e alcohol) Sex and Gender Information Value Date Recorded Sex Assigned at Male 06/12/2022 10:17 PM EDT Legal Sex Male 2:12 PM EDT Gender Identity Male 06/12/2022 10:17 PM EDT Sexual Orientation Straight 06/12/2022 10 :17 PM EDT documented as of this encounter Plan of Treatment Upcoming Encounters Date Type Department Care Team (Late st Contact Info) Description 04/24/2025 4:20 PM EST Office Visit [facility] [address] [place] [address] Irving Bhagat MD [address] [place] [address] documented as of this encounter Visit Diagnoses Not on filedocumented in this encounter Care Teams Manager Hospitality Relationship Specialty Start Date End Date Mg Louis [address] [place] [address] PCP - General 01/15/25 documented as of this encounter
--- OUTSIDE RECORDS SUMMARY | 2025-01-29 20:15 | XMS_ITS | Encounter Summary ---
Author Organization [facility] Address [address] [place] [address] Care Team Providers Care Rn First Assistant Name Role Phone Mg Louis Primary Care Provider [phone] Encounter Details Date Type Department Care Team (Late st Contact Info) Description 07/11/2022 myChart Message [facility] [address] [place] [id number] Landscape Gardener: GERALD HORTON Takeiya B., MD [address] [place] [phone] Here in the ER Social History Tobacco Use Types Packs/Day Years [...] Description 04/24/2025 4:20 PM EST Office Visit [facility] [address] [place] [address] Irving Bhagat MD [address] [place] [phone] documented as of this encounter Visit Diagnoses Not on filedocumented in this encounter Additional Health Concerns Infection Onset Date Last Indicated Resolved Time COVID-19 - Suspected infection 07/11/2022 07/11/2022 07/11/2022 7:40 PM EDT documented as of this encounter Care Teams Rn First Assistant Relationship Specialty Start Date End Date Mg Louis [address] [place] [address] PCP - General 01/15/25 documented as of this encounter
--- OUTSIDE RECORDS SUMMARY | 2025-01-29 20:15 | XMS_ITS | Encounter Summary ---
Author Organization [facility] Address [address] [place] [address] Care Team Providers Care Infantry Assaultman Name Role Phone Mg Louis Primary Care Provider [phone] Encounter Details Date Type Department Care Team (Late st Contact Info) Description 06/23/2022 myChart Message [facility] Neuopsychiatry [address] [place] [phone] Scan Special Procedures Technologist: GERALD HORTON Takeiya B., MD [address] [place] [phone] Documents Social History Tobacco Use Types Packs/Day Years [...] Description 04/24/2025 4:20 PM EST Office Visit [facility] Neurology Clinic [address] [place] [address] Irving Bhagat MD [address] [place] [address] documented as of this encounter Visit Diagnoses Not on filedocumented in this encounter Additional Health Concerns Infection Onset Date Last Indicated Resolved Time COVID-19 - Suspected infection 07/11/2022 07/11/2022 07/11/2022 7:40 PM EDT documented as of this encounter Care Teams Infantry Assaultman Relationship Specialty Start Date End Date Mg Louis [address] [place] [address] PCP - General 01/15/25 documented as of this encounter
--- OUTSIDE RECORDS SUMMARY | 2025-01-29 20:15 | XMS_ITS | Encounter Summary ---
Author Organization [facility] Address [address] [place] [address] Care Team Providers Care Racing Driver Name Role Phone Mg Louis Primary Care Provider [phone] Encounter Details Date Type Department Care Team (Late st Contact Info) Description 07/24/2022 myChart Message [facility] Neuopsychiatry [address] [place] [phone] Physician Assistant Surgery: GERALD HORTON Takeiya B., MD [address] [place] [phone] Update Social History Tobacco Use Types Packs/Day Years [...] Description 04/24/2025 4:20 PM EST Office Visit [facility] Neurology Clinic [address] [place] [address] Irving Bhagat MD [address] [place] [address] documented as of this encounter Visit Diagnoses Not on filedocumented in this encounter Care Teams Racing Driver Relationship Specialty Start Date End Date Mg Louis [address] [place] [address] PCP - General 01/15/25 documented as of this encounter
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
--- OUTSIDE RECORDS SUMMARY | 2025-01-29 20:15 | XMS_ITS | Clinical Summary ---
Author Organization [facility] Address [address] [place] [address] Phone Care Team Providers Care Store Leader Name Role Phone Unavailable Primary Care Provider Unavailabl e Social History Tobacco Use Types Packs/Day Years Used Date Smoking Tobacco: Never Assessed Sex and Gender Information Value Date Recorded Sex Assigned at Not on file Legal Sex Male 5:37 PM EDT Gender Identity Not on file Sexual Orientation Not on file Plan of Treatment Not on file Medical Devices Not on file Additional Source Comments The information contained in this document represents components of the legal health record. It is not the complete legal health record.[facility]
--- OUTSIDE RECORDS SUMMARY | 2025-01-29 20:15 | XMS_ITS | Encounter Summary ---
Author Organization [facility] Address [address] [place] [address] Care Team Providers Care Iap Displays Analyst Name Role Phone Mg Louis Primary Care Provider [phone] Encounter Details Date Type Department Care Team (Late st Contact Info) Description 06/12/2022 myChart Message [facility] Neuopsychiatry [address] [place] [address] Rubber Cutting Machine Tender: GERALD HORTON Takeiya B., MD [address] [place] [phone] Medical Certificat and Letter of Support Social History Tobacco Use Types Packs/Day Years [...] Description 04/24/2025 4:20 PM EST Office Visit [facility] Neurology Clinic [address] [place] [address] Irving Bhagat MD [address] [place] [address] documented as of this encounter Visit Diagnoses Not on filedocumented in this encounter Additional Health Concerns Infection Onset Date Last Indicated Resolved Time COVID-19 - Suspected infection 07/11/2022 07/11/2022 07/11/2022 7:40 PM EDT documented as of this encounter Care Teams Iap Displays Analyst Relationship Specialty Start Date End Date Mg Louis [address] [place] [address] PCP - General 01/15/25 documented as of this encounter
--- OUTSIDE RECORDS SUMMARY | 2025-01-29 20:15 | XMS_ITS | Encounter Summary ---
Author Organization [facility] Address [address] [place] [address] Care Team Providers Care Disease Case Manager Rn Name Role Phone Mg Louis Primary Care Provider Reason for Visit * Reason Comments Med Refill Encounter Details Date Type Department Care Team (Late st Contact Info) Description 02/06/2023 Refill [facility] Neuopsychiatry [address] [place] [address] Management Accountant: GERALD HORTON Pooja, MD [address] [place] [address] Social History Tobacco Use Types Packs/Day Years [...] Description 04/24/2025 4:20 PM EST Office Visit [facility] Neurology Clinic [address] [place] [address] Irving Bhagat MD [address] [place] [phone] documented as of this encounter Visit Diagnoses Not on filedocumented in this encounter Care Teams Disease Case Manager Rn Relationship Specialty Start Date End Date Mg Louis [address] [place] [address] PCP - General 01/15/25 documented as of this encounter
--- OUTSIDE RECORDS SUMMARY | 2025-01-29 20:15 | XMS_ITS | Encounter Summary ---
Author Organization [facility] Address [address] [place] [address] Care Team Providers Care Customer Trainer Name Role Phone Mg Louis Primary Care Provider [phone] Encounter Details Date Type Department Care Team (Late st Contact Info) Description 01/17/2025 myChart Message [facility] Neurology Clinic [address] [place] [phone] Irving Bhagat MD [address] [place] [address] [phone] Update on Jac (my brother) Social History Tobacco Use Types Packs/Day Years [...] Description 04/24/2025 4:20 PM EST Office Visit [facility] Neurology Clinic [address] [place] [address] Irving Bhagat MD [address] [place] [address] [phone] documented as of this encounter Visit Diagnoses Not on filedocumented in this encounter Care Teams Customer Trainer Relationship Specialty Start Date End Date Mg Louis [address] [place] [address] PCP - General 01/15/25 documented as of this encounter
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
--- OUTSIDE RECORDS SUMMARY | 2025-01-29 20:15 | XMS_ITS | Encounter Summary ---
Author Organization [facility] Address [address] [place] [address] Care Team Providers Care Screed Person Name Role Phone Mg Louis Primary Care Provider [phone] Encounter Details Date Type Department Care Team (Late st Contact Info) Description 07/11/2022 myChart Message [facility] Neuopsychiatry [address] [place] [phone] Real Estate Economist: GERALD HORTON Takeiya B., MD [address] [place] [phone] URGENT Social History Tobacco Use Types Packs/Day Years [...] Description 04/24/2025 4:20 PM EST Office Visit [facility] Neurology Clinic [address] [place] [address] Irving Bhagat MD [address] [place] [address] documented as of this encounter Visit Diagnoses Not on filedocumented in this encounter Additional Health Concerns Infection Onset Date Last Indicated Resolved Time COVID-19 - Suspected infection 07/11/2022 07/11/2022 07/11/2022 7:40 PM EDT documented as of this encounter Care Teams Screed Person Relationship Specialty Start Date End Date Mg Louis [address] [place] [address] PCP - General 01/15/25 documented as of this encounter
--- OUTSIDE RECORDS SUMMARY | 2025-01-29 20:16 | XMS_ITS | Clinical Summary ---
Author Organization [facility] Address [address] [place] [address] Phone Care Team Providers Care Pipe Fitter Name Role Phone Mg Louis MD Primary Care Provider + [phone] Allergies No known active allergies Medications OLANZapine (ZyPREXA) 5 mg tablet Take 0.5 tablets (2.5 mg total) by mouth at bedtime. Active divalproex (DEPAKOTE ER) 500 mg 24 hr tablet Take 2 tablets (1,000 mg total) by mouth 2 (two) times a day. 4 Active diclofenac (VOLTAREN) 1 % topical gel Apply 4 g topically 4 (four) times a day for 7 days. 100 g 5 01/30/20 25 Active ibuprofen (ADVIL,MOTRIN) 600 mg tablet Take 1 tablet (600 mg total) by mouth 3 (three) times a day for 5 days. 15 each 5 01/28/20 25 Encounters Date Type Department Care Team Description 01/23/2025 5:44 PM EDT - 01/23/2025 9:[address] [facility] Emergency [address] [place] [address] Angelita Peck MD Acute right ankle pain (Primary Dx) Discharge Disposition: Home or Self Care 01/22/2025 7:31 PM EDT - 01/22/2025 8:[address] [facility] Emergency [address] [place] [address] Acute right ankle pain (Primary Dx) Discharge Disposition: Home or Self Care 01/20/2025 7:20 PM EDT - 01/21/2025 6:[address] [facility] Emergency [address] [place] [phone] Tor Cho MD Edema, unspecified type (Primary Dx); Sprain of right ankle, unspecified ligament, initial encounter Discharge Disposition: Home or Self Care 01/20/2025 8:35 AM EDT - 01/20/2025 10:46 AM EDT [facility] Emergency [address] [place] [phone] Carlee Pisano, Depression, unspecified depression type (Primary Dx) Discharge Disposition: Home or Self Care 01/19/2025 10:51 AM EDT - 01/19/2025 11:31 AM EDT [facility] Emergency [address] [place] [phone] Sprain of right ankle, unspecified ligament, initial encounter (Primary Dx) Discharge Disposition: Home or Self Care from Last 3 Months Surgical History Surgery Date Site/Laterality Comments OTHER SURGICAL HISTORY PROCEDURE: TRACH TUBE CRUZ OTHER SURGICAL HISTORY PROCEDURE: IA TUBE/NEEDLE CATH JEJUNOSTOMY ANY METHOD OTHER SURGICAL HISTORY 2016 PROCEDURE: IA CISTERNAL/LATERAL C1-C2 PUNCTURE W/O INJ SPX Medical History Medical History Date Comments [place]traumatic [place] [place] [facility] [place] DX:TBI (traumatic brain inju ry) ([facility]) Bipolar disorder [place] [place] 4, [facility] [place] Family History Medical History Relation Name Comments [...] on file Sexual Orientation Not on file Obstetrics History Last Filed Vital Signs Vital Sign Reading [...] Mass Index 37.16 01/23/2025 6:05 PM EDT Plan of Treatment Health Maintenance Due Date Last Done Comments HPV Vaccines (1 - 3-dose SCDM series) 2021 HIV Screening 03/12/2022 Hepatitis C Screening 03/12/2022 Medicare Annual Wellness Visit 03/12/2022 Social Influencers of Health Screening 03/12/2022 Depression Screening 04/03/2024 Influenza Vaccine (#1) 2024 5, 03/11/2022, 06/18/2021, Additional history exists DTaP,Tdap,and Td Vaccines (3 - Td or Tdap) 01/21/2026 01/22/2016, 04/10/2012 RSV Immunization Adult Patients (1 - 1-dose 75+ series) 2069 Varicella Vaccines Aged Out 04/10/2012 No longer eligible based on patient's age to complete this topic MMR Vaccines Completed 05/14/2012, 04/10/2012 Hepatitis B Vaccines Completed 07/12/2018, 03/15/2018, 04/10/2012 COVID-19 Vaccine Completed 02/12/2024, 01/2021, 05/13/2020 HIB Vaccines Aged Out No longer eligi ble based on patient's age to complete this topic Hepatitis A Vaccines Aged Out No long er eligible based on patient's age to complete this topic IPV Vaccines Aged Out No longer eligi ble based on patient's age to complete this topic Meningococcal ACWY Vaccine Aged Out N o longer eligible based on patient's age to complete this topic Meningococcal B Vaccine Aged Out No l onger eligible based on patient's age to complete this topic Pneumococcal Vaccine: Pediatrics (0 to 5 Years) and At-Risk Patients (6 to 49 Years) Aged Out No longer eligible based on patient's age to complete this topic RSV Immunization Patients Under 20 months Aged Out No longer eligible based on patient's age to complete this topic Procedures Procedure Name Priority Date/Time Associated Diagnosis Comments XR ANKLE 3+ VIEWS RIGHT STAT 01/22/2025 7:45 PM EDT VAS US DUPLEX LOWER EXT VENOUS RIGHT STAT 01/21/2025 3:20 AM EDT Edema, unspecified type METHADONE SCREEN, URINE STAT 01/20/2025 8:42 PM EDT PHENCYCLIDINE, URINE STAT 01/20/2025 8:42 PM EDT BUPRENORPHINE SCREEN, URINE STAT 01/20/2025 8:42 PM EDT DRUG ABUSE SCREEN 8A PANEL, URINE STAT 01/20/2025 8:42 PM EDT CBC WITH AUTO DIFFERENTIAL STAT 01/20/2025 8:02 PM EDT SALICYLATE LEVEL STAT 01/20/2025 8:02 PM EDT ACETAMINOPHEN LEVEL STAT 01/20/2025 8 :02 PM EDT ETHANOL STAT 01/20/2025 8:02 PM EDT COMPREHENSIVE METABOLIC PANEL STAT 01/20/2025 8:02 PM EDT CBC AND DIFFERENTIAL STAT 01/20/2025 8:02 PM EDT from Last 3 Months Results * XR Ankle 3+ Views Right (01/22/2025 7:45 PM EDT) Anatomical Region Laterality Modality Lower Extremities, Ankle Right Radiogr aphic Imaging 01/23/2025 8:12 AM EDT Impressions 01/23/2025 8:14 AM EDT No fracture, dislocation, or other bony abnormality. There is soft tissue swelling surrounding the ankle joint. Code 98854 -------- FINAL REPORT -------- Dictated By: Marshal Hung Dictated Date: 01/23/2025 08:12 ET Assigned Physician: Marshal Hung Reviewed and Electronically Signed By: Marshal Hung Signed Date: 01/23/2025 08:14 ET Workstation ID: [id number] Transcribed By: Self Edit Transcribed Date: 01/23/2025 08:12 ET Narrative 01/23/2025 8:14 AM EDT HISTORY: The patient is a 30-year-old male with right ankle pain 2 days following a fall. FINDINGS: AP, lateral, and oblique views of the right ankle are obtained. The study demonstrates no fracture, dislocation, arthritic change, or other bony abnormality. Moderate soft tissue swelling surrounds the ankle joint. Procedure Note Marshal Hung MD - 01/23/2025 HISTORY: The patient is a 30-year-old male with right ankle pain 2 daysfollowing a fall. FINDINGS: AP, lateral, and oblique views of the right ankle are obtained.The study demonstrates no fracture, dislocation, arthritic change, orother bony abnormality. Moderate soft tissue swelling surrounds the anklejoint. IMPRESSION: No fracture, dislocation, or other bony abnormality. There is soft tissueswelling surrounding the ankle joint. Code 01777 -------- FINAL REPORT -------- Dictated By: Marshal Hung Dictated Date: 01/23/2025 08:12 ET Assigned Physician: Marshal Hung Reviewed and Electronically Signed By: Marshal Hung Signed Date: 01/23/2025 08:14 ET Workstation ID: [id number] Transcribed By: Self Edit Transcribed Date: 01/23/2025 08:12 ET us Vidya GALINDO IMG XR PROCEDURES Final Result * Vascular US Duplex Lower Extremity Venous Right (01/21/2025 3:20 AM EDT) Anatomical Region Laterality Modality Vascular, Abdomen Ultrasound 01/21/2025 4:29 AM EDT Impressions 01/21/2025 4:29 AM EDT No deep vein thrombosis identified in the right lower extremity veins. -------- FINAL REPORT -------- Dictated By: Blanche Sanchez Dictated Date: 01/21/2025 04:29 ET Assigned Physician: Blanche Sanchez Reviewed and Electronically Signed By: Blanche Sanchez Signed Date: 01/21/2025 04:29 ET Workstation ID: [id number] Transcribed By: Self Edit Transcribed Date: 01/21/2025 04:29 ET Narrative 01/21/2025 4:29 AM EDT INDICATION: pain in extremities COMPARISON: None. TECHNIQUE: Ultrasound of the right lower extremity veins is performed using color-flow Doppler, graded compression with B mode Doppler with spectral analysis FINDINGS: The common femoral, superficial femoral and popliteal veins compress normally throughout their length. Normal response to distal augmentation is seen with calf compression. Included calf vessels are patent on color Doppler. Procedure Note Blanche Sanchez MD - 01/21/2025 INDICATION: pain in extremities COMPARISON: None. TECHNIQUE: Ultrasound of the right lower extremity veins is performedusing color-flow Doppler, graded compression with B mode Doppler withspectral analysis FINDINGS: The common femoral, superficial femoral and popliteal veinscompress normally throughout their length. Normal response to distalaugmentation is seen with calf compression. Included calf vessels arepatent on color Doppler. IMPRESSION: No deep vein thrombosis identified in the right lower extremity veins. -------- FINAL REPORT -------- Dictated By: Blanche Sanchez Dictated Date: 01/21/2025 04:29 ET Assigned Physician: Blanche Sanchez Reviewed and Electronically Signed By: Blanche Sanchez Signed Date: 01/21/2025 04:29 ET Workstation ID: [id number] Transcribed By: Self Edit Transcribed Date: 01/21/2025 04:29 ET us Tor Cho MD CV VASCULAR PROCEDURES Erin l Result * Drug abuse screen 8a panel, urine (01/20/2025 8:42 PM EDT) Amphetamine Screen, Ur Negative Negative LAB CHEMISTRY METHOD 01/20/2025 9:[address] [facility] Comment:Certain OTC medicati ons containing ephedrine, phenylephrine, pseudoephedrine and phenylpropanolamine can cause false positive results. Barbiturate Screen, Ur Negative Negative LAB CHEMISTRY METHOD 01/20/2025 9:[address] [facility] Benzodiazepine Screen, Ur Negative Negative LAB CHEMISTRY METHOD 01/20/2025 9:[address] [facility] Cocaine Screen, Ur Negative Negative LAB CHEMISTRY METHOD 01/20/2025 9:[address] [facility] Opiate Screen, Ur Negative Negative LAB CHEMISTRY METHOD 01/20/2025 9:[address] [facility] Cannabinoid (THC) Screen, Ur Negative Negative LAB CHEMISTRY METHOD 01/20/2025 9:[address] [facility] Comment:Specimens from patie nts taking pantoprazole sodium (Protonix) have been shown to produce false positive results. Oxycodone Screen, Ur Negative Negative LAB CHEMISTRY METHOD 01/20/2025 9:[address] [facility] Fentanyl, Ur Negative Negative LAB CHEMISTRY METHOD 01/20/2025 9:[address] [facility] Urine Urine specimen obtained by clean catch procedure / Unknown Non-blood Collection / Unknown 01/20/2025 8:42 PM EDT 01/20/2025 9:[address] [facility] - 01/20/2025 9:38 PM EDT Assay cutoffs: Amphetamines 1000 ng/mL Barbiturates 200 ng/mL Benzodiazepines 200 ng/mL Cocaine 300 ng/mL Fentanyl 1 ng/mL Opiates 300 ng/mL Oxycodone 100 ng/mL THC 50 ng/mL Semi-quantitative assay for screening purposes only. Unconfirmed screening result should not be used for non-medical purposes. *ALTERNATE METHOD CONFIRMATION DONE UPON REQUEST ONLY* us Tor Cho MD LAB URINE ORDERABLES Final Result [facility] [address] [place] [address], [place] [phone] * Buprenorphine screen, urine (01/20/2025 8:42 PM EDT) Buprenorphine Screen Urine Negative Negative LAB CHEMISTRY METHOD 01/20/2025 9:[address] [facility] Urine Urine specimen obtained by clean catch procedure / Unknown Non-blood Collection / Unknown 01/20/2025 8:42 PM EDT 01/20/2025 9:[address] [facility] - 01/20/2025 9:38 PM EDT Assay cutoff 5 ng/mL Semi-quantitative assay for screening purposes only. Unconfirmed screening result should not be used for non-medical purposes. *ALTERNATE METHOD CONFIRMATION DONE UPON REQUEST ONLY* Tor Cho MD LAB URINE ORDERABLES Final Result Performing Organization Address [facility]/ZIP Co de Phone Number [facility] [address] [place] [address], [place] [phone] * Methadone, urine (01/20/2025 8:42 PM EDT) Methadone Screen, Urine Negative Negative LAB CHEMISTRY METHOD 01/20/2025 9:[address] [facility] Comment: Assay cutoff 300 ng/mL Semi-quantitative assay for screening purposes only. Unconfirmed screening result should not be used for non-medical purposes. *ALTERNATE METHOD CONFIRMATION DONE UPON REQUEST ONLY* Urine Urine specimen obtained by clean catch procedure / Unknown Non-blood Collection / Unknown 01/20/2025 8:42 PM EDT 01/20/2025 9:11 PM EDT Tor Cho MD LAB URINE ORDERABLES Final Result Performing Organization Address [facility]/ZIP Co de Phone Number [facility] [address] [place] [address], [place] [phone] * Phencyclidine, urine (01/20/2025 8:42 PM EDT) [facility] PCP Scrn, Ur Negative Negative LAB CHEMISTRY METHOD 01/20/2025 9:[address] [facility] Comment: Assay cutoff 25 ng/mL Semi-quantitative assay for screening purposes only. Unconfirmed screening result should not be used for non-medical purposes. *ALTERNATE METHOD CONFIRMATION DONE UPON REQUEST ONLY* Urine Urine specimen obtained by clean catch procedure / Unknown Non-blood Collection / Unknown 01/20/2025 8:42 PM EDT 01/20/2025 9:11 PM EDT us Tor Cho MD LAB URINE ORDERABLES Final Result [facility] [address] [place] [address], [place] [phone] * (ABNORMAL) CBC auto differential (01/20/2025 8:02 PM EDT) [facility] WBC 10.4 4.8 - 10.8 K/mcL LAB HEMETOLOGY METHOD 01/20/2025 8:[address] [facility] RBC 5.70(H) 4.50 - 5.50 M/mcL LAB HEMETOLOGY METHOD 01/20/2025 8:[address] [facility] Hemoglobin 16.1 13.5 - 17.5 g/dL LAB HEMETOLOGY METHOD 01/20/2025 8:[address] [facility] Hematocrit 48.6 42.0 - 54.0 % LAB HEMETOLOGY METHOD 01/20/2025 8:[address] [facility] MCV 85.0 79.0 - 98.0 FL LAB HEMETOLOGY METHOD 01/20/2025 8:[address] [facility] MCH 28.1 27.0 - 32.0 pcg LAB HEMETOLOGY METHOD 01/20/2025 8:[address] [facility] MCHC 33.1 32.0 - 37.0 g/dL LAB HEMETOLOGY METHOD 01/20/2025 8:[address] [facility] RDW 14.1 11.0 - 15.0 % LAB HEMETOLOGY METHOD 01/20/2025 8:[address] [facility] Platelets 216 130 - 400 K/mcL LAB HEMETOLOGY METHOD 01/20/2025 8:[address] [facility] MPV 11.0 7.0 - 11.0 FL LAB HEMETOLOGY METHOD 01/20/2025 8:[address] [facility] NRBC 0.0 <1.0 % LAB HEMETOLOGY METHOD 01/20/2025 8:[address] [facility] NRBC Absolute 0.00 <0.10 K/mcL LAB HEMETOLOGY METHOD 01/20/2025 8:25 PM [facility] Neutrophils Relative 62.3 % LAB HEMETOLOGY METHOD 01/20/2025 8:[address] [facility] Lymphocytes Relative 29.2 % LAB HEMETOLOGY METHOD 01/20/2025 8:25 PM [facility] Monocytes Relative 5.8 % LAB HEMETOLOGY METHOD 01/20/2025 8:25 PM [facility] Eosinophils Relative 2.2 % LAB HEMETOLOGY METHOD 01/20/2025 8:[address] [facility] Basophils Relative 0.2 % LAB HEMETOLOGY METHOD 01/20/2025 8:[address] [facility] Immature Granulocytes Relative 0.3 % LAB HEMETOLOGY METHOD 01/20/2025 8:25 PM [facility] Neutrophils Absolute 6.49 1.50 - 7.00 K/mcL LAB HEMETOLOGY METHOD 01/20/2025 8:[address] [facility] Lymphocytes Absolute 3.05 1.00 - 5.00 K/mcL LAB HEMETOLOGY METHOD 01/20/2025 8:[address] [facility] Monocytes Absolute 0.61 0.20 - 1.00 K/[facility] HEMETOLOGY METHOD 01/20/2025 8:[address] [facility] Eosinophils Absolute 0.23 0.00 - 0.50 K/[facility] HEMETOLOGY METHOD 01/20/2025 8:[address] [facility] Basophils Absolute 0.02 0.00 - 0.20 K/[facility] HEMETOLOGY METHOD 01/20/2025 8:[address] [facility] Immature Granulocytes Absolute 0.03 0.00 - 0.03 K/[facility] HEMETOLOGY METHOD 01/20/2025 8:[address] [facility] Blood Venous blood specimen / Unknown Venipuncture / Unknown 01/20/2025 8:02 PM EDT 01/20/2025 8:18 PM EDT Tor Cho MD LAB BLOOD ORDERABLES Final Result [facility] [address] [place] [address], [place] [phone] * Ethanol (01/20/2025 8:02 PM EDT) Ethanol Level <3 0 - 10 mg/dL LAB CHEMISTRY METHOD 01/20/2025 8:[address] [facility] Blood Venous blood specimen / Unknown Venipuncture / Unknown 01/20/2025 8:02 PM EDT 01/20/2025 8:18 PM EDT Tor Cho MD LAB BLOOD ORDERABLES Final Result [facility] [address] [place] [address], [place] [phone] * (ABNORMAL) Acetaminophen level (01/20/2025 8:02 PM EDT) Acetaminophen Level <2.0(L) 10.0 - 30.0 mcg/mL LAB CHEMISTRY METHOD 01/20/2025 8:[address] [facility] Blood Venous blood specimen / Unknown Venipuncture / Unknown 01/20/2025 8:02 PM EDT 01/20/2025 8:18 PM EDT Tor Cho MD LAB BLOOD ORDERABLES Final Result Performing Organization Address [facility]/ZIP Co de Phone Number [facility] [address] [place] [address], [place] [phone] * (ABNORMAL) Salicylate level (01/20/2025 8:02 PM EDT) Salicylate Level <1.7(L) 2.0 - 29.0 mg/dL LAB CHEMISTRY METHOD 01/20/2025 8:[address] [facility] Blood Venous blood specimen / Unknown Venipuncture / Unknown 01/20/2025 8:02 PM EDT 01/20/2025 8:18 PM EDT Tor Cho MD LAB BLOOD ORDERABLES Final Result [facility] [address] [place] [address], [place] [phone] * Comprehensive metabolic panel (01/20/2025 8:02 PM EDT) Sodium 137 133 - 145 mmol/L LAB CHEMISTRY METHOD 01/20/2025 8:[address] [facility] Potassium 3.7 3.5 - 5.5 mmol/L LAB CHEMISTRY METHOD 01/20/2025 8:[address] [facility] Chloride 104 96 - 110 mmol/L LAB CHEMISTRY METHOD 01/20/2025 8:53 PM [facility] CO2 27 21 - 32 mmol/L LAB CHEMISTRY METHOD 01/20/2025 8:53 PM [facility] Anion Gap 6 3 - 11 LAB CHEMISTRY METHOD 01/20/2025 8:53 PM [facility] Glucose 98 70 - 100 mg/dL LAB CHEMISTRY METHOD 01/20/2025 8:53 PM [facility] BUN 7 5 - 25 mg/dL LAB CHEMISTRY METHOD 01/20/2025 8:53 PM [facility] Creatinine 0.90 0.70 - 1.30 mg/dL LAB CHEMISTRY METHOD 01/20/2025 8:53 PM [facility] eGFR 117 >=60 mL/min/1. 73m2 LAB CHEMISTRY METHOD 01/20/2025 8:53 PM [facility] Comment:Calculation based on the Chronic Kidney Disease Epidemiology Collaboration (CKD-EPI) equation refit without adjustment for race. BUN/Creatinine Ratio 7.8 LAB CHEMISTRY METHOD 01/20/2025 8:53 PM [facility] Calcium 9.1 8.5 - 10.5 mg/dL LAB CHEMISTRY METHOD 01/20/2025 8:53 PM [facility] AST (SGOT) 14 10 - 42 unit/L LAB CHEMISTRY METHOD 01/20/2025 8:53 PM [facility] ALT (SGPT) 41 10 - 60 unit/L LAB CHEMISTRY METHOD 01/20/2025 8:53 PM [facility] Alkaline Phosphatase 100 42 - 121 unit/L LAB CHEMISTRY METHOD 01/20/2025 8:53 PM [facility] Total Protein 7.0 6.0 - 8.0 g/dL LAB CHEMISTRY METHOD 01/20/2025 8:53 PM [facility] Albumin 3.6 3.2 - 5.0 g/dL LAB CHEMISTRY METHOD 01/20/2025 8:53 PM EDT [facility] Total Bilirubin 0.5 0.0 - 1.4 mg/dL LAB CHEMISTRY METHOD 01/20/2025 8:53 PM EDT [facility] Blood Venous blood specimen / Unknown Venipuncture / Unknown 01/20/2025 8:02 PM EDT 01/20/2025 8:18 PM EDT us Tor Cho MD LAB BLOOD ORDERABLES Final Result [facility] [address] [place] [address], [place] [phone] from Last 3 Months Insurance MEDICARE [place]ICAID - [place] Advance Directives Documents on File Type Date Recorded 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
--- OUTSIDE RECORDS SUMMARY | 2025-01-29 20:16 | XMS_ITS ---
Author Name [facility] Organization Unknown Care Team Organization Name Specialty Phone Email Start Date End Da te [facility] Termed, PROVIDER Primary Care 02/08/202211/01
--- OUTSIDE RECORDS SUMMARY | 2025-01-29 20:16 | XMS_ITS | Encounter Summary ---
Author Organization [facility] Address [address] [place] [address] Care Team Providers Care Sales Analytics Manager Name Role Phone Mg Louis Primary Care Provider [phone] Encounter Details Date Type Department Care Team (Late st Contact Info) Description 04/05/2022 Telephone [facility] [address] [place] [address] [phone] Lissette Perez MA Social History Tobacco Use Types Packs/Day Years [...] PM EDT documented as of this encounter Miscellaneous Notes * Telephone Encounter - Lissette Perez MA - 04/13/2022 5:25 PM EST Faxed DME order to [facility] at [phone] * Telephone Encounter - Lissette Perez MA - 04/05/2022 10:27 AM EST [facility] [place], [place] called stating she is looking for a prescription for this patient for left AFO adjustments or left brace adjustments for his gait issues. Yanni states patient is going to physical therapy. The fax # is . Yanni can be reachedat if needed. documented in this encounter Plan of Treatment Upcoming Encounters Date Type Department Care Team (Late st Contact Info) Description 04/24/2025 4:20 PM EST Office Visit [facility] [address] [place] [address] Irving Bhagat MD [address] [place] [address] documented as of this encounter Visit Diagnoses Not on filedocumented in this encounter Additional Health Concerns Infection Onset Date Last Indicated Resolved Time COVID-19 - Suspected infection 07/11/2022 07/11/2022 07/11/2022 7:40 PM EDT documented as of this encounter Care Teams Sales Analytics Manager Relationship Specialty Start Date End Date Mg Louis [address] [place] [address] PCP - General 01/15/25 documented as of this encounter
--- OUTSIDE RECORDS SUMMARY | 2025-01-29 20:16 | XMS_ITS | Encounter Summary ---
Author Organization [facility] Address [address] [place] [address] Care Team Providers Care Factory Supervisor Name Role Phone Mg Louis Primary Care Provider Reason for Visit * Reason Onset Date Comments Med Refill 12/04/2023 Encounter Details Date Type Department Care Team (Late st Contact Info) Description 12/04/2023 Refill [facility] [address] [place] [address] Html Developer: GERALD HORTON Alexander A., MD [address] [place] [address] Agitation Social History Tobacco Use Types Packs/Day Years [...] Description 04/24/2025 4:20 PM EST Office Visit [facility] [address] [place] [address] Irving Bhagat MD [address] [place] [phone] documented as of this encounter Visit Diagnoses Diagnosis Agitation Other and unspecified special symptom or syndrome, not elsewhere classified documented in this encounter Care Teams Factory Supervisor Relationship Specialty Start Date End Date Mg Louis: [phone] [address] [place] [address] PCP - General 01/15/25 documented as of this encounter
--- OUTSIDE RECORDS SUMMARY | 2025-01-29 20:16 | XMS_ITS | Encounter Summary ---
Author Organization [facility] Address [address] [place] [address] Care Team Providers Care Instrument Man Name Role Phone Mg Louis Primary Care Provider [phone] Encounter Details Date Type Department Care Team (Late st Contact Info) Description 12/12/2023 myChart Message [facility] [address] [place] [phone] Floor Steward/Stewardess: GERALD HORTON Alexander A., MD [address] [place] [phone] Appointment Canceled Social History Tobacco Use Types Packs/Day Years [...] Description 04/24/2025 4:20 PM EST Office Visit [facility] [address] [place] [address] Irving Bhagat MD [address] [place] [id number] documented as of this encounter Visit Diagnoses Not on filedocumented in this encounter Care Teams Instrument Man Relationship Specialty Start Date End Date Mg Louis [address] [place] [address] PCP - General 01/15/25 documented as of this encounter
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
--- OUTSIDE RECORDS SUMMARY | 2025-01-29 20:16 | XMS_ITS | Encounter Summary ---
Author Organization [facility] Address [address] [place] [address] Care Team Providers Care Automatic Chief Name Role Phone Mg Louis Primary Care Provider [phone] Encounter Details Date Type Department Care Team (Late st Contact Info) Description 11/25/2023 myChart Message [facility] [address] [place] [phone] Showroom Salesperson: GERALD HORTON Alexander A., MD [address] [place] [phone] Urgent Social History Tobacco Use Types Packs/Day Years [...] Description 04/24/2025 4:20 PM EST Office Visit [facility] [address] [place] [phone] Irving Bhagat MD [address] [place] [phone] documented as of this encounter Visit Diagnoses Not on filedocumented in this encounter Care Teams Automatic Chief Relationship Specialty Start Date End Date Mg Louis [address] [place] [address] PCP - General 01/15/25 documented as of this encounter
[2025-01-29 21:01] LABS: MANUAL DIFF FLAG NO
[2025-01-29 21:03] LABS: Hematocrit 44.2 % (42.0-52.0); Hemoglobin 14.9 g/dl (14.0-18.0); Imm Gran Abs Auto 0.04 X10*3/uL (0.00-0.03); Imm Gran Pct Auto 0.4 % (0.0-0.4); Lymphocytes Absolute Auto 2.1 X10*3/uL (1.2-4.9); Mean Corpuscular HGB Conc 33.7 g/dl (31.0-36.0); Mean Corpuscular Hemoglobin 28.7 pg (27.0-33.0); Mean Corpuscular Volume 85.2 fL (80.0-98.0); NRBC Abs Auto 0.000 X10*3/uL (0.0-0.012); NRBC Pct Auto 0.0 /100WBC (0.0-0.2); Platelet Count 216 X10*3/uL (160-400); Red Blood Count 5.19 X10*6/uL (4.60-5.80); White Blood Count 9.4 X10*3/uL (4.8-10.8)
[2025-01-29 21:04] LABS: Appearance Urine Clear; Glucose Urine UA Negative (Negative); PH 6.0 (5.0-9.0); Specific Gravity - Urine 1.025 (1.005-1.025)
[2025-01-29 21:12] LABS: Cannabinoid Screen Urine Not Detected (Not Detect)
[2025-01-29 21:19] LABS: Alanine Aminotransferase 25 U/L (0-40); Albumin Level 4.4 g/dL (3.5-5.0); Alkaline Phosphatase 95 U/L (39-117); Anion Gap 12 (12-20); Aspartate Amino Transferase 22 U/L (5-37); Blood Urea Nitrogen 7 mg/dL (9-16); Calcium 8.9 mg/dL (8.4-10.2); Carbon Dioxide 24 mmol/L (22-29); Chloride 109 mmol/L (96-108); Creatinine Clr Calc Pharmacy 193.5; Estimated Glomerular Filt Rate > 60; Potassium 3.8 mmol/L (3.3-5.1); Sodium 141 mmol/L (135-145); Total Protein 7.2 g/dL (6.5-8.0)
[2025-01-29 21:23] LABS: Acetaminophen LAB < 3 mcg/mL (<30); Salicylate < 5.0 mg/dL (15-30)
[2025-01-29 22:16] LABS: Erythrocyte Sedimentation Rate 11 MM/HR (0-15)
--- NOTE | 2025-01-29 22:27 | MHC.CARE ---
Sister provided copy of guardianship paperwork at the time of the evaluation. It is to be noted the last page of the document appears to be missing and it has been requested to send a complete copy of the paperwork at this time to be scanned into his records. A copy of what was obtained at this time will be placed in pt's chart. Patient was also evaluated by the Care Team at this time and will remain in the ED awaiting a psychiatric consultation for assistance with medication management as well as disposition as there is question if pt's presentation is secondary to an untreated mental health diagnosis or secondary to his previously diagnosed TBI. Patient will remain on a section 12 at the request of the ED attending pending a psych consult and further follow up will occur once psychiatry completes their evaluation.
[2025-01-30 06:23] VITALS: BP 128/72; PULSE 66; RESP 17; TEMP 36.3; O2SAT 100
--- NOTE | 2025-01-30 07:31 | PC.NURSE ---
Assumed care of patient at 0645, patient is awake this am, requesting to know plan of care, pacing around unit with walker with steady gait. Calm and cooperative at this time. Pt is currently pending psych consult
--- NOTE | 2025-01-30 10:45 | PC.NURSE ---
pt was reporting increased abdominal pain as well as anxiety, pt medicated per MAR
--- NOTE | 2025-01-30 11:28 | PC.NURSE ---
Pt reports frustration with not being seen yet, this RN reassured patient that he will be seen at some point throughout the day, encouraged to take a nap. Pt laid down in bed and is now resting comfortably
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
--- NOTE | 2025-01-30 15:45 | PHA.MEDREC ---
Addendum entered by Carlton Blas RPh 01/30/25 15:51: Reviewed by [facility] Original Note: Pharmacy Consult ? Medication Reconciliation Pharmacy has reviewed the medication reconciliation done by nursing. claims match med list.
[2025-01-30 16:58] VITALS: BP 154/76; PULSE 69; RESP 14; TEMP 36.3; O2SAT 97
--- NOTE | 2025-01-30 16:59 | PC.NURSE ---
Pt has been ambulating around BH pod in no apparent distress today, currently pending CARE team eval at this time
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
[2025-01-30 22:00] VITALS: RESP 17
--- NOTE | 2025-01-31 00:26 | PC.NURSE ---
Patient observed to be ambulating independently around unit with walker. Able to make needs appropriately. Requested snack and liquids. Adherent to HS scheduled medications. Denies SI/HI/AVH. Agreeable to alert staff if feeling unsafe. 15 minute checks ongoing. Plan of care ongoing.
[2025-01-31 06:23] VITALS: BP 122/74; PULSE 72; RESP 17; TEMP 36.8; O2SAT 100
[2025-01-31 07:42] VITALS: BP 135/86; PULSE 92; RESP 16; TEMP 36.8; O2SAT 98
--- NOTE | 2025-01-31 07:56 | PC.NURSE ---
Assumed care, report received. Pt is awake, he ate breakfast and is currently taking a shower. He states he will be going to respite today. he is in good spirits, calm and cooperative.
[2025-01-31 09:24] VITALS: BP 135/86; PULSE 92; RESP 16; TEMP 36.8
--- NOTE | 2025-01-31 15:56 | MHC.CM.PN ---
PT DISCHARGED TODAY WITH MH F/U COORDINATED BY THE CARE TEAM
== END 2025-01-31 09:31 | disposition home or self-care (01) ==
PROVIDERS: Emergency Medicine Emergency Medical Services; Emergency Provider Student in an Organized Health Care Education/Training Program
DX: F41.9 Anxiety disorder, unspecified (principal); F34.81 Disruptive mood dysregulation disorder; M25.571 Pain in right ankle and joints of right foot; R45.1 Restlessness and agitation; L53.9 Erythematous condition, unspecified; M79.89 Other specified soft tissue disorders; Z87.820 Personal history of traumatic brain injury; Z79.899 Other long term (current) drug therapy
CPT/HCPCS: 36415; 73610; 80053; 80143; 80179; 80307; 81001; 85025; 85652; 86140; 93971; 99284; S9485

== ENCOUNTER → 2025-01-29 16:50 | Outpatient (BNV) | payer MEDICARE, MEDICAID, SELFPAY | PROVIDERS: Emergency Provider Student in an Organized Health Care Education/Training Program; Visit Provider Nurse Practitioner Family | DX: F34.81 Disruptive mood dysregulation disorder (principal); S06.9X9A Unspecified intracranial injury with loss of consciousness of unspecified duration, initial encounter | CPT/HCPCS: 99283 ==

== ENCOUNTER → 2025-01-29 21:38 | Outpatient (BNV) | payer MEDICARE, MEDICAID, SELFPAY | PROVIDERS: Emergency Provider Student in an Organized Health Care Education/Training Program; Visit Provider Radiology Diagnostic Radiology | DX: M79.89 Other specified soft tissue disorders (principal) | CPT/HCPCS: 73610; 93971 ==

== ENCOUNTER 2025-03-06 14:42 | Emergency (ER) | payer MEDICARE, MEDICAID, SELFPAY ==
--- OUTSIDE RECORDS SUMMARY | 2025-03-01 09:16 | XMS_ITS | Encounter Summary ---
Author Organization [facility] Address [address] [place] [address] Care Team Providers Care Platform Operations Director Name Role Phone Mg Louis MD Primary Care Provider [phone] Reason for Visit * Reason Comments Depression Encounter Details Date Type Department Care Team ([facility] st Contact Info) Description 03/01/2025 9:16 AM EST - 03/01/2025 9:48 AM EST Emergency [facility] Emergency [address] [place] [id number] Taylor Hoskins MD [address] [place] [address] Encounter for medical screening examination (Primary Dx) Discharge Disposition: Home or Self [...] Sign Reading Time Taken Comments Blood Pressure 127/74 03/01/2025 9:29 AM EST Pulse 67 03/01/2025 9:29 AM EST Temperature 36.4 C (97.5 F) 03/01/2025 9:29 AM EST Respiratory Rate 16 03/01/2025 9:29 AM EST Oxygen Saturation 98% 03/01/2025 9:29 AM EST Inhaled Oxygen Concentration - - Weight 119 kg (262 lb) 03/01/2025 9:22 AM EST Height 177.8 cm (5' 10 ) 03/01/2025 9:22 AM EST Body Mass Index 37.59 03/01/2025 9:22 AM EST documented in this encounter Functional Status * Calculated C-SSRS Risk Score (Lifetime/Recent) Answer Date of Assessment Author No Risk Indicated 03/01/2025 9:30 AM EST Dione Patrick RN * Henderson Suicide Severity Rating Scale (Screener/Recent Self-Report) Question Answer Date of Assessment Author 1. Wish to be (Past 1 Month) No 9:30 AM EST Dione Patrick RN 2. Non-Specific Active Suici sidney Thoughts (Past 1 Month) No 03/01/2025 9:30 AM EST Jordyn Patrick RN 6. Suicidal Behavior (Lifetime) No 9:30 AM EST Dione Patrick RN documented as of this encounter Discharge Instructions * Discharge Instructions* Taylor Hoskins MD - 03/01/2025 9:32 AM EST Keep your follow-up with your neurologist on Monday as planned. Return to the emergency department if any new or worsening symptoms or if you feel you are unsafe at home or in any danger of hurting or killing yourself or anyone else. Please work with a therapist or psychologist to discuss your frustrations and how to cope when you have an argument or feel frustrated with others. documented in this encounter Medications at Time of Discharge divalproex (DEPAKOTE ER) 500 mg 24 hr tablet Take 2 tablets (1,000 mg total) by mouth 2 (two) times a day. 03/03/2024 OLANZapine (ZyPREXA) 5 mg tablet Take 0.5 tablets (2.5 mg total) by mouth at bedtime. documented as of this encounter Discharge Disposition Disposition Code Departure Means Destination Comment s Home or Self Care Reviewed discharge instructions with patient who verbalizes understanding and was advised to follow up with PCP and return to ED if symptoms worsen. Patient seen leaving ED with steady gait with cane and no acute distress at this time. documented in this encounter Progress Notes * Dione Patrick RN - 03/01/2025 9:17 AM EST Patient comes in from home via EMS for increasing depression x1 week. Known hx of TBI and PTSD. Refusing vitals for EMS. A/O x4, ambulatory. Denies SI/HI for EMS. * Taylor Hoskins MD - 03/01/2025 9:14 AM EST EMERGENCY DEPARTMENT Provider Note Room: Y-/W- Patient: Jac Caldera PCP: Mg Louis MD Patient : 1995 Patient Department: [facility] [address] [place] [id number] Dept: [phone] Triage Chief Complaint: Depression History of Present Illness: 30-year-old male brought by EMS after he called 911 due to frustration with his family members. Patient has a history of TBI and depression. He states he argument with his family members and just wanted to get out of there so he called 911. He did not feel unsafe nor did he feel that he was in any danger nor depressed or wanting to hurt himself or anyone else. Just call 911. He now realizes that he should not have called 911 for this reason, he should have just called someone else or talked out his frustration. He has no complaints. He is not feeling depressed. He is not having any pain anywhere including no chest pain or trouble breathing. He has no thoughts of suicide or homicide and no hallucinations. Hehas been taking his medications as prescribed. He is alert and oriented and answering questions appropriately. He would like to go home and he feels safe to do so. He states his family takes care of him and will take him back home as well. ED Course / Medications given / MDM: Patient with no complaints. No distress. Alert and oriented. Normal clinical exam except for the patient's baseline TBI/gait abnormality. Unchanged. Does not want any tests. Stable for discharge Clinical Impressions as of 03/01/25 0936 Encounter for medical screening examination Medications - No data to display Clinical Impression(s): Final diagnoses: [Z13.9] Encounter for medical screening examination Disposition: Discharge Physical Examination: Temp: 36.4 ??C (97.5 ??F) BP: 127/74 Heart Rate: 67 Resp: 16 SpO2: 98 % Nursing notes and vitals reviewed. Constitutional: Well-developed, well-nourished, and in no distress. Head: Normocephalic and atraumatic. Eyes: Conjunctivae and EOM are normal. ENT: Moist mucous membranes Neck: Normal range of motion. No tracheal deviation present. Cardiovascular: Normal rate. Pulmonary/Chest: Effort normal. No respiratory distress. Abdominal: No distension. Musculoskeletal: Normal range of motion. No deformity. He is able to weight-bear with a cane, a bitof a limp. Neurological: Alert. GCS 15 although has some occasional abnormal speech/slowed speech related to TBI. He is fully oriented. He was able to explain his TBI and even tell me how many years months and days since his TBI.. Psych: Normal mood, normal affect. No SI. No HI. No hallucinations Skin: Warm and dry. Lab & Imaging Results: The patient has no complaints. No testing indicated at this time. Medical screening exam complete and the patient would like to be discharged. Procedures: Procedures Previous Medications DIPHENHYDRAMINE (BENADRYL) 25 MG CAPSULE Take 1 capsule (25 mg total) by mouth at bedtime as neededfor sleep for up to 5 days. DIVALPROEX (DEPAKOTE ER) 500 MG 24 HR TABLET Take 2 tablets (1,000 mg total) by mouth 2 (two) timesa day. OLANZAPINE (ZYPREXA) 5 MG TABLET Take 0.5 tablets (2.5 mg total) by mouth at bedtime. Allergies: Patient has no known allergies. Medical History[1] Surgical History[2] Social History[3] Taylor Hoskins MD 03/01/25 0951 [1] Past Medical History: Diagnosis Date Bipolar disorder ([facility] V24, [facility] V28) TBI (traumatic brain injury) ([facility] V24, [facility] V28) DX:TBI (traumatic brain injury) ([facility]) [2] Past Surgical History: Procedure Laterality Date OTHER SURGICAL HISTORY PROCEDURE: TRACH TUBE CRUZ OTHER SURGICAL HISTORY PROCEDURE: RI TUBE/NEEDLE CATH JEJUNOSTOMY ANY METHOD OTHER SURGICAL HISTORY 2015 PROCEDURE: RI CISTERNAL/LATERAL C1-C2 PUNCTURE W/O INJ SPX [3] Social History Tobacco Use Smoking status: Never Smokeless tobacco: Never Substance Use Topics Alcohol use: No Drug use: No Taylor Hoskins MD 03/01/25 0935 documented in this encounter Miscellaneous Notes * ED Bed Hold Note - Zana Chiu RN - 03/01/2025 9:16 AM EST Bed: [facility] Expected date: Expected time: Means of arrival: Comments: AMR: depression 30yoM documented in this encounter Plan of Treatment Not on file documented as of this encounter Visit Diagnoses Diagnosis Encounter for medical screening examination- Primary documented in this encounter Care Teams Platform Operations Director Relationship Specialty Start Date End Date Mg Louis MD [address] [place] [address] PCP - General Internal Medicine 01/21/25 documented as of this encounter
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
--- OUTSIDE RECORDS SUMMARY | 2025-03-06 10:30 | XMS_ITS | Encounter Summary ---
Author Organization [facility] Address [address] [place] [address] Care Team Providers Care Service Sprinkler Helper Name Role Phone Mg Louis Primary Care Provider [phone] Reason for Referral * Consultation (Routine) - Authorized Specialty Diagnoses / Procedures Referred By Stephon palomares Referred To Contact Diagnoses Traumatic brain injury with loss of consciousness, sequela Irving Bhagat MD [address] [place] [address] Phone: tel: fax: [facility] Social Work Department [address] [place] [address] Referral ID Status Reason Start Date Expiration Date V isits Requested Visits Authorized [id number] Authorized 03/06/2025 04/06/2026 6 6 Reason for Visit * Neurology (Routine) - Authorized Specialty Diagnoses / Procedures Referred By Stephon palomares Referred To Contact Neurology Diagnoses Return in about 6 months (around 08/14/2024). Procedures FOLLOW UP NEURO REHAB Ref, Has[facility] DO NOT EDIT THIS RECORD VIA PROVIDER ON THE FLY Irving Bhagat MD [address] [place] [address] Phone: tel: fax: Referral ID Status Reason Start Date Expiration Date V isits Requested Visits Authorized [id number] Authorized 08/29/2024 02/28/2026 6 6 Encounter Details Date Type Department Care Team (Late st Contact Info) Description 03/06/2025 10:30 AM EST Office Visit [facility] Neurology Clinic [address] [place] [address] Irving Bhagat MD [address] [place] [address] Traumatic brain injury with loss of consciousness, sequela (Primary Dx); Mood disorder; Sleep disorder Social History Tobacco Use Types [...] Sign Reading Time Taken Comments Blood Pressure 118/79 03/06/2025 10:21 AM EST Pulse 78 03/06/2025 10:21 AM EST Temperature 36.4 C (97.6 F) 03/06/2025 10:21 AM EST Respiratory Rate 16 03/06/2025 10:21 AM EST Oxygen Saturation - - Inhaled Oxygen Concentration - - Weight 121 kg (266 lb 12.1 oz) 03/06/2025 10:21 AM EST Height - - Body Mass Index 38.28 03/03/2025 3:26 PM EST documented in this encounter Patient Instructions * Patient Instructions* Irving Bhagat MD - 03/06/2025 11:53 AM EST Referral to social work to assist with connecting with [facility] AND getting a therapist Increase trazodone to 75 mg daily Continue zyprexa 10 mg night Continue depakote 1000 mg BID Follow-up in 3 months Call with ANY questions/concerns documented in this encounter Plan of Treatment Upcoming Encounters Date Type Department Care Team (Late st Contact Info) Description 08/28/2025 1:00 PM EDT Office Visit [facility] Neurology Clinic [address] [place] [id number] Irving Bhagat MD [address] [place] [address] Scheduled Referrals Name Type Priority Associated Diagnoses Order Schedule Ambulatory referral to Social Work Outpatient Referral Routine Traumatic brain injury with loss of consciousness, sequela Expected: 03/06/2025, Expires: 04/06/2026 documented as of this encounter Visit Diagnoses Diagnosis Traumatic brain injury with loss of consciousness, sequela- Primary Mood disorder Unspecified episodic mood disorder Sleep disorder Unspecified sleep disturbance documented in this encounter Care Teams Service Sprinkler Helper Relationship Specialty Start Date End Date Mg Louis [address] [place] [address] PCP - General 01/15/25 documented as of this encounter
[2025-03-06 14:48] VITALS: BMI 27.3
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
[2025-03-06 15:14] VITALS: BP 111/62; PULSE 75; RESP 18; TEMP 36.1; O2SAT 998
[2025-03-06 15:22] LABS: MANUAL DIFF FLAG NO
[2025-03-06 15:35] LABS: Cannabinoid Screen Urine Not Detected (Not Detect)
[2025-03-06 15:36] LABS: Hematocrit 46.4 % (42.0-52.0); Hemoglobin 15.6 g/dl (14.0-18.0); Imm Gran Abs Auto 0.04 X10*3/uL (0.00-0.03); Imm Gran Pct Auto 0.4 % (0.0-0.4); Lymphocytes Absolute Auto 2.3 X10*3/uL (1.2-4.9); Mean Corpuscular HGB Conc 33.6 g/dl (31.0-36.0); Mean Corpuscular Hemoglobin 29.3 pg (27.0-33.0); Mean Corpuscular Volume 87.1 fL (80.0-98.0); NRBC Abs Auto 0.000 X10*3/uL (0.0-0.012); NRBC Pct Auto 0.0 /100WBC (0.0-0.2); Platelet Count 185 X10*3/uL (160-400); Red Blood Count 5.33 X10*6/uL (4.60-5.80); White Blood Count 9.6 X10*3/uL (4.8-10.8)
[2025-03-06 15:41] LABS: Alanine Aminotransferase 28 U/L (0-40); Albumin Level 4.7 g/dL (3.5-5.0); Alkaline Phosphatase 84 U/L (39-117); Anion Gap 11 (12-20); Aspartate Amino Transferase 25 U/L (5-37); Blood Urea Nitrogen 8 mg/dL (9-16); Calcium 9.0 mg/dL (8.4-10.2); Carbon Dioxide 26 mmol/L (22-29); Chloride 108 mmol/L (96-108); Creatinine Clr Calc Pharmacy 124.4; Estimated Glomerular Filt Rate > 60; Potassium 3.8 mmol/L (3.3-5.1); Sodium 141 mmol/L (135-145); Total Protein 7.6 g/dL (6.5-8.0)
[2025-03-06 15:43] LABS: Appearance Urine Clear; Glucose Urine UA Negative (Negative); PH 6.5 (5.0-9.0); Specific Gravity - Urine 1.010 (1.005-1.025)
[2025-03-06 18:19] VITALS: BP 111/62; PULSE 75; RESP 18; TEMP 36.1; O2SAT 998
--- OUTSIDE RECORDS SUMMARY | 2025-03-06 21:53 | XMS_ITS | Clinical Summary ---
Author Organization [facility] Address [address] [place] [address] Phone Care Team Providers Care Graphic Designer Name Role Phone Unavailable Primary Care Provider [...] It is not the complete legal health record.[facility]
--- OUTSIDE RECORDS SUMMARY | 2025-03-06 21:54 | XMS_ITS | Encounter Summary ---
Author Organization [facility] Address [address] [place] [address] Care Team Providers Care Curtain Stretcher Name Role Phone Mg lr Primary Care Provider [phone] Reason for Visit * Reason Onset Date Comments Med Refill 12/04/2023 Encounter Details Date Type Department Care Team (Late st Contact Info) Description 12/04/2023 Refill [facility] Neuopsychiatry [address] [place] [address] Scorekeeper: GERALD HORTON Alexander A., MD [address] [place] [phone] Agitation Social History Tobacco Use Types Packs/Day [...] Description 08/28/2025 1:00 PM EDT Office Visit [facility]rology [facility] [address] [place] [phone] Irving Bhagat MD [address] [place] [phone] documented as of this encounter Visit Diagnoses Diagnosis Agitation Other and unspecified special symptom or syndrome, not elsewhere classified documented in this encounter Care Teams Curtain Stretcher Relationship Specialty Start Date End Date Mg Louis [address] [place] [address] PCP - General 01/15/25 documented as of this encounter
--- OUTSIDE RECORDS SUMMARY | 2025-03-06 21:54 | XMS_ITS | Encounter Summary ---
Author Organization [facility] Address [address] [place] [address] Care Team Providers Care Research Attorney Name Role Phone Mg lr Primary Care Provider [phone] Encounter Details Date Type Department Care Team (Late st Contact Info) Description 11/25/2023 myChart Message [facility] Neuopsychiatry [address] [place] [address] Medical Manager: GERALD HORTON Alexander A., MD [address] [place] [phone] Urgent Social History Tobacco Use Types Packs/Day [...] Description 08/28/2025 1:00 PM EDT Office Visit [facility] Neurology Clinic [address] [place] [address] Irving Bhagat MD [address] [place] [address] documented as of this encounter Visit Diagnoses Not on filedocumented in this encounter Care Teams Research Attorney Relationship Specialty Start Date End Date Mg Louis [address] [place] [address] PCP - General 01/15/25 documented as of this encounter
--- OUTSIDE RECORDS SUMMARY | 2025-03-06 21:54 | XMS_ITS | Encounter Summary ---
Author Organization [facility] Address [address] [place] [address] Care Team Providers Care Customer Accounts Advisor Name Role Phone Mg lr Primary Care Provider [phone] Encounter Details Date Type Department Care Team (Late st Contact Info) Description 12/12/2023 myChart Message [facility] Neuopsychiatry [address] [place] [address] Ocular Care Technician: GERALD HORTON Alexander A., MD [address] [place] [phone] Appointment Canceled Social History Tobacco Use Types [...] Description 08/28/2025 1:00 PM EDT Office Visit [facility] Neurology Clinic [address] [place] [address] Irving Bhagat MD [address] [place] [address] documented as of this encounter Visit Diagnoses Not on filedocumented in this encounter Care Teams Customer Accounts Advisor Relationship Specialty Start Date End Date Mg Louis [address] [place] [address] PCP - General 01/15/25 documented as of this encounter
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
--- OUTSIDE RECORDS SUMMARY | 2025-03-06 21:55 | XMS_ITS | Encounter Summary ---
Author Organization [facility] Address [address] [place] [address] Care Team Providers Care Motor Block Mechanic Name Role Phone Mg Louis Primary Care Provider [phone] Encounter Details Date Type Department Care Team (Late st Contact Info) Description 01/30/2025 Telephone [facility] Neuopsychiatry [address] [place] [phone] Compounder Helper: GERALD HORTON Patricia, [place] Social History Tobacco Use Types Packs/Day [...] encounter Miscellaneous Notes * Telephone Encounter - Pascale Gong MA - 01/30/2025 9:52 AM EDT Patient's sister left a message that she would like her brother to continue treatment in Neuropsychiatry. He was seen by Dr Lynn in July and at that time the olanzapine was stopped. Dr. Lynn D/C him from clinic. About two weeks ago, he was starting some erratic behavior. Dr. Pozo put him on 5 mg of Olanzapine to see how he responds. He is beginning to get aggressive with his parents. Should he be scheduled as a transfer (1 hr) appt. Please let me know. Thanks. Pat documented in this encounter Plan of Treatment Upcoming Encounters Date Type Department Care Team (Late st Contact Info) Description 08/28/2025 1:00 PM EDT Office Visit [facility] [address] [place], [place] [id number] Irving Bhagat MD [address] [place] [phone] documented as of this encounter Visit Diagnoses Not on filedocumented in this encounter Care Teams Motor Block Mechanic Relationship Specialty Start Date End Date Mg Louis [address] [place] [address] PCP - General 01/15/25 documented as of this encounter
--- OUTSIDE RECORDS SUMMARY | 2025-03-06 21:55 | XMS_ITS | Encounter Summary ---
Author Organization [facility] Address [address] [place] [address] Care Team Providers Care Consumer Loan Officer Name Role Phone Mg lr Primary Care Provider [phone] Encounter Details Date Type Department Care Team (Late st Contact Info) Description 07/24/2022 myChart Message [facility] Neuopsychiatry [address] [place] [address] Dye Tub Operator: GERALD HORTON Takeiya B., MD [address] [place] [phone] Update Social History Tobacco Use Types Packs/Day [...] Description 08/28/2025 1:00 PM EDT Office Visit [facility] [address] [place] [address] Irving Bhagat MD [address] [place] [address] documented as of this encounter Visit Diagnoses Not on filedocumented in this encounter Care Teams Consumer Loan Officer Relationship Specialty Start Date End Date Mg Louis [address] [place] [phone] PCP - General 01/15/25 documented as of this encounter
--- OUTSIDE RECORDS SUMMARY | 2025-03-06 21:55 | XMS_ITS | Encounter Summary ---
Author Organization [facility] Address [address] [place] [address] Care Team Providers Care Architectural Representative Name Role Phone Mg lr Primary Care Provider [phone] Encounter Details Date Type Department Care Team (Late st Contact Info) Description 07/11/2022 myChart Message [facility] Neuopsychiatry [address] [place] [address] Metal Building Assembler: GERALD HORTON Takeiya B., MD [address] [place] [phone] Here in the ER Social History Tobacco [...] Description 08/28/2025 1:00 PM EDT Office Visit [facility] [address] [place] [address] Irving Bhagat MD [address] [place] [address] documented as of this encounter Visit Diagnoses Not on filedocumented in this encounter Additional Health Concerns Infection Onset Date Last Indicated Resolved Time COVID-19 - Suspected infection 07/11/2022 07/11/2022 07/11/2022 7:40 PM EDT documented as of this encounter Care Teams Architectural Representative Relationship Specialty Start Date End Date Mg Louis [address] [place] [address] PCP - General 01/15/25 documented as of this encounter
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
--- OUTSIDE RECORDS SUMMARY | 2025-03-06 21:55 | XMS_ITS | Encounter Summary ---
Author Organization [facility] Address [address] [place] [address] Care Team Providers Care Graphic Design Manager Name Role Phone Mg Louis Primary Care Provider [phone] Encounter Details Date Type Department Care Team (Late st Contact Info) Description 08/15/2022 myChart Message [facility] Neuopsychiatry [address] [place] [address] Criminal Defense Lawyer: GERALD HORTON Takeiya B., MD [address] [place] [phone] prescription Social History Tobacco Use Types Packs/Day [...] Description 08/28/2025 1:00 PM EDT Office Visit [facility] Neurology [facility] [address] [place] [address] Irving Bhagat MD [address] [place] [address] documented as of this encounter Visit Diagnoses Not on filedocumented in this encounter Care Teams Graphic Design Manager Relationship Specialty Start Date End Date Mg Louis [address] [place] [phone] PCP - General 01/15/25 documented as of this encounter
--- OUTSIDE RECORDS SUMMARY | 2025-03-06 21:55 | XMS_ITS | Encounter Summary ---
Author Organization [facility] Address [address] [place] [address] Care Team Providers Care Cupola Melting Supervisor Name Role Phone Mg Louis Primary Care Provider [phone] Encounter Details Date Type Department Care Team (Late st Contact Info) Description 04/05/2022 Telephone [facility] [address] [place] [phone] Lissette Perez MA Social History Tobacco Use [...] Faxed DME order to [facility] at [phone] * Telephone Encounter - Lissette Perez MA - 04/05/2022 10:27 AM EST Yanni [facility] in [place], [place] called stating she is looking for [...] Description 08/28/2025 1:00 PM EDT Office Visit [facility] [address] [place] [address] Irving Bhagat MD [address] [place] [id number] documented as of this encounter Visit Diagnoses Not on filedocumented in this encounter Additional Health Concerns Infection Onset Date Last Indicated Resolved Time COVID-19 - Suspected infection 07/11/2022 07/11/2022 07/11/2022 7:40 PM EDT documented as of this encounter Care Teams Cupola Melting Supervisor Relationship Specialty Start Date End Date Mg Louis [address] [place] [address] PCP - General 01/15/25 documented as of this encounter
--- OUTSIDE RECORDS SUMMARY | 2025-03-06 21:55 | XMS_ITS | Encounter Summary ---
Author Organization [facility] Address [address] [place] [address] Care Team Providers Care Paint Department Supervisor Name Role Phone Mg lr Primary Care Provider Encounter Details Date Type Department Care Team (Late st Contact Info) Description 07/11/2022 myChart Message [facility] [address] [place] [address] Master Glazier: GERALD HORTON Takeiya B., MD [address] [place] [id number] URGENT Social History Tobacco Use Types Packs/Day [...] Visit [facility] [address] [place] [address] Irving Bhagat MD [address] [place] [address] documented as of this encounter Visit Diagnoses Not on filedocumented in this encounter Additional Health Concerns Infection Onset Date Last Indicated Resolved Time COVID-19 - Suspected infection 07/11/2022 07/11/2022 07/11/2022 7:40 PM EDT documented as of this encounter Care Teams Paint Department Supervisor Relationship Specialty Start Date End Date Mg Louis [address] [place] [address] PCP - General 01/15/25 documented as of this encounter
--- OUTSIDE RECORDS SUMMARY | 2025-03-06 21:55 | XMS_ITS | Encounter Summary ---
Author Organization [facility] Address [address] [place] [address] Care Team Providers Care Specialty Molder Name Role Phone Mg Louis Primary Care Provider [phone] Encounter Details Date Type Department Care Team (Late st Contact Info) Description 06/23/2022 myChart Message [facility] [address] [place] [address] River Rat: GERALD HORTON Takeiya B., MD [address] [place] [phone] Documents Social History Tobacco Use Types Packs/Day [...] Description 08/28/2025 1:00 PM EDT Office Visit [facility] [address] [place] [address] Irving Bhagat MD [address] [place] [address] documented as of this encounter Visit Diagnoses Not on filedocumented in this encounter Additional Health Concerns Infection Onset Date Last Indicated Resolved Time COVID-19 - Suspected infection 07/11/2022 07/11/2022 07/11/2022 7:40 PM EDT documented as of this encounter Care Teams Specialty Molder Relationship Specialty Start Date End Date Mg Louis [address] [place] [address] PCP - General 01/15/25 documented as of this encounter
--- OUTSIDE RECORDS SUMMARY | 2025-03-06 21:55 | XMS_ITS | Encounter Summary ---
Author Organization [facility] Address [address] [place] [address] Care Team Providers Care Fur Designer Name Role Phone be Mg Primary Care Provider [phone] Encounter Details Date Type Department Care Team (Late st Contact Info) Description 04/07/2022 Orders Only [facility] [address] [place] [address] Irving Bhagat MD [address] [place] [phone] Traumatic brain injury with loss of consciousness, [...] Description 08/28/2025 1:00 PM EDT Office Visit [facility] [address] [place] [address] Irving Bhagat MD [address] [place] [address] documented as of this encounter Visit Diagnoses Diagnosis Traumatic brain injury with loss of consciousness, sequela- Primary documented in this encounter Additional Health Concerns Infection Onset Date Last Indicated Resolved Time COVID-19 - Suspected infection 07/11/2022 07/11/2022 07/11/2022 7:40 PM EDT documented as of this encounter Care Teams Fur Designer Relationship Specialty Start Date End Date Mg Louis [address] [place] [address] PCP - General 01/15/25 documented as of this encounter
--- OUTSIDE RECORDS SUMMARY | 2025-03-06 21:55 | XMS_ITS | Encounter Summary ---
Author Organization [facility] Address [address] [place] [address] Care Team Providers Care Strategic Planning Analyst Name Role Phone Mg lr Primary Care Provider [phone] Encounter Details Date Type Department Care Team (Late st Contact Info) Description 06/12/2022 myChart Message [facility] [address] [place] [address] Cinder Crusher Operator: GERALD HORTON Takeiya B., MD [address] [place] [phone] Medical Certificat and Letter of Support Social [...] Description 08/28/2025 1:00 PM EDT Office Visit [facility] [address] [place], [place] [phone] Irving Bhagat MD [address] [place], [place] [phone] documented as of this encounter Visit Diagnoses Not on filedocumented in this encounter Additional Health Concerns Infection Onset Date Last Indicated Resolved Time COVID-19 - Suspected infection 07/11/2022 07/11/2022 07/11/2022 7:40 PM EDT documented as of this encounter Care Teams Strategic Planning Analyst Relationship Specialty Start Date End Date Mg Louis [address] [place] [address] PCP - General 01/15/25 documented as of this encounter
--- OUTSIDE RECORDS SUMMARY | 2025-03-06 21:55 | XMS_ITS | Encounter Summary ---
Author Organization [facility] Address [address] [place] [address] Care Team Providers Care Certified Health Education Specialist Name Role Phone Mg lr Primary Care Provider [phone] Reason for Visit * Reason Comments Med Refill Encounter Details Date Type Department Care Team (Late st Contact Info) Description 02/06/2023 Refill [facility] [address] [place] [address] Service Or Work Dispatcher: GERALD HORTON Pooja, MD [address] [place] [address] Social History Tobacco Use Types Packs/Day Years [...] Description 08/28/2025 1:00 PM EDT Office Visit [facility] [address] [place], [place] [phone] Irving Bhagat MD [address] [place], [place] [phone] documented as of this encounter Visit Diagnoses Not on filedocumented in this encounter Care Teams Certified Health Education Specialist Relationship Specialty Start Date End Date Mg Louis [address] [place] [address] PCP - General 01/15/25 documented as of this encounter
== END 2025-03-06 18:19 | disposition home or self-care (01) ==
PROVIDERS: Emergency Medicine; Emergency Provider Emergency Medicine
DX: R45.851 Suicidal ideations (principal); F32.A Depression, unspecified; F43.20 Adjustment disorder, unspecified; F43.10 Post-traumatic stress disorder, unspecified; Z87.820 Personal history of traumatic brain injury
CPT/HCPCS: 36415; 80053; 80307; 81001; 85025; 99285; S9485